=== PATIENT | female | born 1940 | race Caucasian/White ===

== ENCOUNTER 2016-11-04 13:38 | Inpatient (IN) ==
[2016-11-04] MEDS ORDERED: DILTIAZEM 50 MG/10 ML VIAL IV STA ×2 (13:50→14:57)
[2016-11-04] MEDS ORDERED: DILTIAZEM 50 MG/10 ML VIAL IV ONE (13:52)
--- NOTE | 2016-11-04 13:52 | EKG Report ---
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
[2016-11-04 14:05] LABS: Basophils % 0.4 % (0.0-0.8); Eosinophils % 0.3 % (0.00-10.9); Hematocrit 50.6 VOL% (35.7-47.0); Hemoglobin 16.6 GM/DL (12.0-16.0); Immature Granulocytes % 0.4 %; Immature Granulocytes Absolute 0.05 #; Lymphocytes # 1.9 10*3/uL (1.4-4.0); Lymphocytes % 16.7 % (21.3-54.2); Mean Corpuscular HGB Conc 32.8 GM/DL (32-36); Mean Corpuscular Hemoglobin 31 PG (27-34); Mean Platelet Volume 14.4 FL (9.6-12.0); Monocytes % 9.1 % (1.7-12.7); Neutrophils # 8.2 10*3/uL (1.4-7.4); Neutrophils % 73.1 % (38.7-73.9); Platelet Count 109 10*3/uL (130-400); Red Blood Count 5.44 10*6/uL (3.8-5.5); Red Cell Distribution Width 13.6 % (9.3-17.3); White Blood Count 11.2 10*3/uL (4.5-13.71)
[2016-11-04 14:14] LABS: INR 2.5
[2016-11-04 14:15] LABS: PT Patient Result 28.3 SECS
[2016-11-04 14:33] LABS: Blood Urea Nitrogen 26 MG/DL (7-18); Calcium 8.6 MG/DL (8.5-10.1); Glucose 153 MG/DL (74-106); Magnesium 2.1 MG/DL (1.8-2.4); Osmolality,Calculated 286.4 MOS/KG (273-304); Potassium 4.5 MMOL/L (3.5-5.1); Sodium 140 MMOL/L (136-145); Troponin I Only < 0.015 NG/ML (0.00-0.045)
--- NOTE | 2016-11-04 15:27 | XRay Report ---
XR chest 1V portable Indication: Shortness of breath and fever. Chest one view: Comparison 08/06/16. Pacemaker, prosthetic mitral valve, postoperative changes median sternotomy, normal heart size and mediastinal contour and chronic coarsening additional both lung may is stable. No new infiltrates are identified. Impression: Chronic changes as described. No acute cardio pulmonary disease evident. PROCEDURE INTERPRETED AT [facility] DEPARTMENT OF RADIOLOGY Final Report Signed by: Taras Ledezma M.D.
[2016-11-04] MEDS ORDERED: ONDANSETRON 4 MG/2 ML VIAL IV STA (15:29)
[2016-11-04] MEDS ORDERED: ONDANSETRON 4 MG/2 ML VIAL ONE (15:31)
[2016-11-04] MEDS ORDERED: MAGNESIUM SULF RIDER 2 GM in PREMIX 1 EACH IV PRN (15:59)
[2016-11-04] MEDS ORDERED: MAGNESIUM SULF RIDER 4 GM in PREMIX 1 EACH IV PRN (15:59)
--- NOTE | 2016-11-04 16:03 | Emergency Department Note ---
Virgilio Reed Brooke, am scribing for, and in the presence of, Murali Sandoval M.D. 14:07. Lori Reed Howard T, M.D., personally performed the services described in this documentation, ascribed by Sylvia Poole in my presence, and it is both accurate and complete [id number] . Arrival - Arrival Chief Complaint: Arrhythmia/Palpitations Stated Complaint: A.FIB with RVR; dsypnea ED Nursing Triage Note: Patient reports shortness of breath, abdominal pain, nausea, and vomiting since Tuesday. She did experience a near syncopal episode today. EMS arrival she was 160s AFIB with RVR Mode of Arrival: Stretcher Limitations: No Limitations Source: Patient, Family, RN Notes Reviewed Time Seen by Provider: 11/04/16 13:50 - History of Present Illness HPI Narrative: Patient is a 76 year old female brought into the Ed by EMS with c/o afib. Patient says this started today but her "defibrillator did not go off." Patient says at 1100 this morning she checked her heart rate and it was 97. She says she had a syncopal episode after the afib started. She also complains of having some "severe" abdominal pain that she usually gets when she goes into afib. Patient says she has had flu symptoms for the past couple of days, including cough, congestion, and fever. Patient says her cough is productive. Her temperature during triage was 97.6. Patient says she tried to get in to see her doctor but didn't. A Pharmacist recommenced Mucinex for her to take. Patient says she has not had an appetite due to some nausea. Patient has PMHx of CHF, afib, HTN, pacemaker, ablason(x2), thyroid disorder, asthma, obstructive sleep apnea, PE, and GERD. Allergies/Adverse Reactions: Allergies Allergy/AdvReac Type Severity Reaction Status Date / Time morphine Allergy Redness of Verified 08/05/16 14:25 Skin pantoprazole [From Protonix] AdvReac Intermediate Abdominal Verified 08/06/16 10 :06 Pain Home Medications: Home Medications Medication Instructions Recorded Confirmed Type Ondansetron Tab [Zofran Tab] 4 mg PO Q6H PRN 03/11/15 08/05/16 History Beclomethasone 80 Mcg Inhaler 80 mcg INH BID PRN #1 inhaler 04/28/16 08/05/16 Rx [Qvar 80 Mcg] Sotalol [Betapace] 120 mg PO BID #60 tablet 04/28/16 08/05/16 Rx Levothyroxine Tab [Synthroid Tab] 100 mcg PO DAILY 06/05/16 08/05/16 History B1/B2/B3/B5/B6/Iron/Meth/Choln 15 ml PO DAILY 08/05/16 08/05/16 History [Geritol Tonic] Cholecalciferol (Vitamin D3) 5,000 unit PO DAILY 08/05/16 08/05/16 History [Vitamin D3] Diltiazem Cd Cap [Cardizem CD] 120 mg PO BID 08/05/16 08/05/16 History Magnesium Oxide [Magnesium] 500 mg PO BID 08/05/16 08/05/16 History Vitamin B Complex 1 each PO DAILY 08/05/16 08/05/16 History Warfarin [Coumadin] 5 mg PO DAILY 08/05/16 08/05/16 History Review of System - Review of System 12 point system: reviewed and no additional remarkable complaints except as stated - Review of System Constitutional: Present: fever Respiratory: Present: cough (productive) Cardiovascular: Present: syncope, other (afib) Gastrointestinal: Present: abdominal pain, nausea Skin: Absent: rash Medical,Surgical,& Family Hx - Medical History Cardio: History of: Cardiac Dysrhythmia (A-Fib), CHF, Hypertension, Pacemaker, Cardiovascular Problems (Ablation x 2 Dr Courtney De La Cruz) Psychological: No history of: Anxiety Disorders HEENT: History of: Eye Problem (wears glasses) Endocrine: History of: Thyroid Disorder (takes synthroid) Respiratory: History of: Asthma, Obstructive Sleep Apnea, Pulmonary Embolism Renal: History of: Renal Problems (urinary urgency) Gastrointestinal: History of: GERD, GI Problems Musculoskeletal: History of: Musculoskeletal Problems (joint stiffness) - Surgical History Cardiac Surgeries: Sugical HX of: Cardiac Catheterization, Cardiac Surgery ( mitral valve replacement, ablation x 2), Internal Defibrillator Thoracic Surgeries: Patient denies;: Organ Transplant Neurologic Surgeries: Patient denies: Neurologic Surgery HEENT Surgeries: Patient denies: Eye Surgery, Tonsilectomy & Adenoidectomy Abdominal Surgeries: Surgical HX of: Colonoscopy, EGD Patient denies: Abdominal Surgery Reproductive Surgeries: Surgical HX of;: Section, Hysterectomy Patient denies;: Genitourinary Surgery - Family History Family History: Reports;: Family Heart Disease (father and mother), Family Hypertension (mother) Comment Only: Family Cancer (sister had colon cancer) - Social History Smoking Status: Never smoker Frequency of Alcohol Use: None Type of Drug Use: None Exam Vital Signs: Vital Signs Temperature 97.6 F 11/04/16 13:40 Pulse Rate 66 11/04/16 15:15 Respiratory Rate 18 11/04/16 15:15 Blood Pressure 109/34 11/04/16 15:15 O2 Sat by Pulse Oximetry 97 11/04/16 15:15 - General General appearance: alert, in no apparent distress - Head Head exam: Present: atraumatic, normocephalic - Eye Eye exam: Present: normal appearance, PERRL, EOMI - ENT ENT exam: Present: normal exam - Neck Neck exam: Present: normal inspection - Chest Chest inspection: Present: normal inspection, symmetric chest wall rise - Respiratory Respiratory exam: Present: wheezes (diffuse), other (coarse breath sounds) - Cardiovascular Cardiovascular exam: Present: regular rate, irregular rhythm, normal heart sounds - Abdominal Exam Abdominal exam: Present: soft. Absent: distention, tenderness - Extremities Exam Extremities exam: Present: normal inspection - Back Exam Back exam: Present: normal inspection - Neurological Exam Neurological exam: Present: alert, oriented X3 - Psychiatric Psychiatric exam: Present: normal affect, normal mood - Skin Skin exam: Present: warm, dry, intact, normal color Course Course Narrative: Medical decision making: Nonspecific respiratory symptoms with some dehydration may be causing her irregular tachyarrhythmia, complicated cardiac history therefore will discuss with Dr. Flores cloth mercerizer back tender on-call for further evaluation. Likely cardiology will admit patient. Results - Labs CBC & BMP: 11/04/16 13:49 11/04/16 13:49 Lab Results: I have reviewed the patients labs Labs: Laboratory Tests 11/04/16 11/04/16 13:49 13:49 Hgb 16.6 H Hct 50.6 H Plt Count 109 L MPV 14.4 H Lymph % (Auto) 16.7 L Neut # (Auto) 8.2 H [place] # (Auto) 1.0 H Anion Gap 16.5 H BUN 26 H Creatinine 1.20 H BUN/Creatinine Ratio 21.00 H Glucose 153 H - Diagnostic Findings Procedure: Chest x-ray: report reviewed by me (Chronic changes as described. No acute cardiopulmonary disease evident.) Disposition Clinical Impression: Atrial fibrillation, Upper respiratory infection, Dehydration Case discussed with: patient Disposition: Disch/Xfer-[facility] Condition: Guarded Time of Disposition: 16:03
[2016-11-04] MEDS ORDERED: METOPROLOL TARTRATE 5 MG/5 ML VIAL IV STA (16:30)
[2016-11-04] MEDS ORDERED: METOPROLOL TARTRATE 5 MG/5 ML VIAL IV ONE (16:32)
[2016-11-04] MEDS: SODIUM CHLORIDE 0.45% 1,000 ML IV SCH (16:38)
--- NOTE | 2016-11-04 18:50 | Cardiology History & Physical ---
Assessment and Plan - Time spent with patient Time spent with patient: (CBCs were unremarkable. Chemistries with electrolytes unremarkable. Cranial 1.2 BUN 26. Troponin is nondetectable.) (1) Flu syndrome Status: Acute Assessment and plan: Patient with GI complaints as well as respiratory complaints of possible viral/ flu syndrome. We will treat this symptomatology. Current Visit: Yes (2) Atrial flutter with rapid ventricular response Status: Acute Assessment and plan: We'll control patient's rates and try to convert the patient appropriately. Current Visit: Yes (3) Obesity Status: Acute Assessment and plan: Chronic issue. Current Visit: No (4) Hypercholesterolemia Status: Acute Assessment and plan: Chronic issue. Current Visit: No History of Present Illness Chief complaint: atrial fibrillation History of present illness: Ms. Lim is a 76 year old female who presented to the emergency room complaining of fever and congestion as well as cough and wheezing. She's had some nausea and diarrhea. It emerged ratios then to be in atrial flutter with rapid ventricular response. She is not aware that she was in atrial fibrillation/flutter. She is asymptomatic with regard only complaints is that with her viral/flu syndrome. The patient has a past cardiac history in that she has had mitral valve replacement for which she has had a maze procedure at the time of her mitral valve replacement with 2 ablations for atrial dysrhythmias. She has had a wide complex tachycardia felt to be ventricular tachycardia for which she has an AICD implanted. She denies any anginal equivalent. As noted she had no significant coronary disease previously on evaluation. She is being admitted by the emergency room to our service because of her atrial tachycardia Home Medications Medication Instructions Recorded Confirmed Type Ondansetron Tab [Zofran Tab] 4 mg PO Q6H PRN 03/11/15 11/04/16 History Beclomethasone 80 Mcg Inhaler 80 mcg INH BID PRN #1 inhaler 04/28/16 11/04/16 Rx [Qvar 80 Mcg] Sotalol [Betapace] 120 mg PO BID #60 tablet 04/28/16 11/04/16 Rx Levothyroxine Tab [Synthroid Tab] 100 mcg PO DAILY 06/05/16 11/04/16 History Cholecalciferol (Vitamin D3) 5,000 unit PO DAILY 08/05/16 11/04/16 History [Vitamin D3] Magnesium Oxide [Magnesium] 500 mg PO BID 08/05/16 11/04/16 History Vitamin B Complex 1 each PO DAILY 08/05/16 11/04/16 History Warfarin [Coumadin] 5 mg PO DAILY 08/05/16 11/04/16 History ALPRAZolam [Alprazolam] 0.25 mg PO TID PRN 11/04/16 11/04/16 History Acetaminophen Tab [Tylenol Tab] 1,000 mg PO Q8HR PRN 11/04/16 11/04/16 History Diltiazem HCl [Cartia XT] 180 mg PO BID 11/04/16 11/04/16 History Levalbuterol Tartrate [Xopenex Hfa 2 puff INH BID 11/04/16 11/04/16 History Inhaler] Losartan Potassium [Losartan 100 mg PO DAILY 11/04/16 11/04/16 History Potassium] Allergies Allergy/AdvReac Type Severity Reaction Status Date / Time morphine Allergy Redness of Verified 08/05/16 14:25 Skin pantoprazole [From Protonix] AdvReac Intermediate Abdominal Verified 08/06/16 10 :06 Pain Review of systems: Constitutional: Deniesfrequent falls, night sweats, weight gain, weight loss. She has chronic obesity. She has recently had fever and chills and decreased appetite with what she describes as the flu. Eyes: Denies visual changes or loss of vision Ears: Denies decreased hearing, vertigo Nose, mouth and throat: Denies dysphagia, epistaxis, headaches, neck pain, tongue swelling, Neck: Denies thyromegaly or masses. No stiffness. Cardiovascular: as per HPI Respiratory: Complains of shortness of breath and wheezing recently with her present complaints. Denies hemoptysis, dyspnea on exertion, w snoring Gastrointestinal: Denies abdominal pain, constipation, dyspepsia, dysphagia, hematemesis, hematochezia, melena, nausea, vomiting Genitourinary: Denies dysuria, hematuria, nocturia Musculoskeletal: Denies arthralgias, joint swelling, muscle weakness, myalgias Neurological: denies abnormal gait, abnormal speech, confusion, convulsions, frequent falls, headaches, memory loss, syncope Psychiatric: Denies anxiety, confusion, depression Endocrine: Denies cold intolerance, fatigue, heat intolerance Hematologic/Lymphatic: Denies easy bleeding, easy bruising Dermatologic: Denies Rash, itching, shingles Medical,Surgical,& Family Hx - Medical History Cardio: History of: Cardiac Dysrhythmia (A-Fib, atrial flutter, ventricular tachycardia), CHF, Hypertension, Pacemaker, Cardiovascular Problems (Ablation x 2 Dr Courtney De La Cruz) Psychological: No history of: Anxiety Disorders HEENT: History of: Eye Problem (wears glasses) Endocrine: History of: Thyroid Disorder (takes synthroid) Respiratory: History of: Asthma, Obstructive Sleep Apnea, Pulmonary Embolism, Pneumonia Renal: History of: Renal Problems (urinary urgency) Gastrointestinal: History of: GERD, GI Problems Musculoskeletal: History of: Musculoskeletal Problems (joint stiffness) - Surgical History Cardiac Surgeries: Sugical HX of: Cardiac Catheterization, Cardiac Surgery ( mitral valve replacement, ablation x 2), Internal Defibrillator Thoracic Surgeries: Patient denies;: Organ Transplant Neurologic Surgeries: Patient denies: Neurologic Surgery HEENT Surgeries: Patient denies: Eye Surgery, Tonsilectomy & Adenoidectomy Abdominal Surgeries: Surgical HX of: Colonoscopy, EGD Patient denies: Abdominal Surgery Reproductive Surgeries: Surgical HX of;: Section, Hysterectomy Patient denies;: Genitourinary Surgery - Family History Family History: Reports;: Family Heart Disease (father and mother), Family Hypertension (mother) Comment Only: Family Cancer (sister had colon cancer) - Social History Smoking Status: Never smoker Frequency of Alcohol Use: None Type of Drug Use: None Functional capacity: independent ambulation Cardiology Physical Exam - Constitutional Vitals: Vital Signs Temp Pulse Resp BP Pulse Ox 97.6 F 88 20 127/77 95 11/04/16 13:40 11/04/16 18:00 11/04/16 18:00 11/04/16 18:00 11/04/16 18:00 Exam: General appearance: Obese, no acute distress. She was asleep when I arrived. Head exam: normal inspection, atraumatic Eye exam: Pupils are equal and reactive. EOMI. There is no trauma. Ear exam: Anatomically normal. Normal auditory acuity to conversation. Oral exam: No significant oral lesions. Neck exam: normal inspection no JVD. No carotid bruit. Trachea is in midline. Respiratory exam: Patient has diffuse wheezing and coarse breath sounds throughout the anterior and posterior lung may. Cardiovascular exam: Irregular rhythm and rate. Heart sounds are distant but no gross murmur or gallop or rub. No precordial lift. Chest wall/torso: Anatomically normal. No tenderness, deformity. Old well- healed midline sternotomy scar. Peripheral Pulses: 2+ throughout. GI/Abdominal exam: normal bowel sounds, soft and nontender, no abdominal bruits or pulsatile masses. Musculoskeletal/Extremities exam: normal inspection without edema or cyanosis. No deformities or trauma. Neurological exam: alert, oriented X3. There is no gross neurologic deficits. Psychiatric exam: normal affect, normal mood. Cognitive function is grossly intact. Skin exam: normal color, warm. No rashes or other skin lesions. Result/EKG - Labs CBC & BMP: 11/04/16 13:49 11/04/16 13:49 Lab Results: I have reviewed the past 24 hour labs (CBCs were unremarkable. Chemistries with electrolytes unremarkable. Cranial 1.2 BUN 26. Troponin is nondetectable) Quality Measures - VTE Contraindication to Pharmacological VTE Prophylaxis: Already on Theraputic Agent , No Prophylaxis Needed
[2016-11-04] MEDS ORDERED: BECLOMETHASONE 80 MCG/PUFF INHALER 8.7 GM INH PRN (19:02)
[2016-11-04] MEDS ORDERED: DILTIAZEM CD 180 MG CAPSULE PO SCH (21:00)
[2016-11-04] MEDS ORDERED: SOTALOL 80 MG TABLET PO SCH (21:00)
[2016-11-04] MEDS: MAG OXIDE PO SCH (21:51)
[2016-11-04] MEDS: ALPRAZolam 0.25 MG TABLET PO PRN (21:52)
[2016-11-04] MEDS: ACETAMINOPHEN 500 MG TABLET PO PRN (21:59)
[2016-11-04] MEDS: ALBUTEROL 2.5 MG/3 ML NEB RESP TX SCH (23:47)
[2016-11-05] MEDS: ONDANSETRON 4 MG TABLET PO PRN ×3 (01:59→16:25)
[2016-11-05] MEDS: SODIUM CHLORIDE 0.45% 1,000 ML IV SCH ×3 (01:59→15:53)
[2016-11-05] MEDS: ALBUTEROL 2.5 MG/3 ML NEB RESP TX SCH ×2 (03:17→07:17)
[2016-11-05 05:14] LABS: Basophils % 0.5 % (0.0-0.8); Eosinophils % 0.5 % (0.00-10.9); Hematocrit 44.3 VOL% (35.7-47.0); Hemoglobin 14.6 GM/DL (12.0-16.0); Immature Granulocytes % 0.4 %; Immature Granulocytes Absolute 0.03 #; Lymphocytes # 1.8 10*3/uL (1.4-4.0); Lymphocytes % 22.4 % (21.3-54.2); Mean Corpuscular Hemoglobin 31 PG (27-34); Mean Corpuscular Volume 94.1 FL (87-102); Mean Platelet Volume 14.2 FL (9.6-12.0); Monocytes # 1.4 10*3/uL (0.11-0.8); Monocytes % 17.5 % (1.7-12.7); Neutrophils # 4.8 10*3/uL (1.4-7.4); Neutrophils % 58.7 % (38.7-73.9); Platelet Count 75 10*3/uL (130-400); Red Blood Count 4.71 10*6/uL (3.8-5.5); Red Cell Distribution Width 13.4 % (9.3-17.3); White Blood Count 8.2 10*3/uL (4.5-13.71)
[2016-11-05 05:38] LABS: Hypochromasia 1+; Lymphocytes 16 % (20-55); Platelet Estimate Decreased; Segmented Neutrophils 70 % (50-85); Total Cells Counted 100
[2016-11-05 05:46] LABS: Potassium 4.3 MMOL/L (3.5-5.1)
--- NOTE | 2016-11-05 07:02 | EKG Report ---
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
[2016-11-05] MEDS: LEVOTHYROXINE 100 MCG TABLET PO SCH (07:08)
--- NOTE | 2016-11-05 08:13 | Cardiology Progress Note ---
Assessment and Plan (1) Atrial flutter with rapid ventricular response Status: Acute Assessment and plan: She remains fast. It appears that she was placed on albuterol rather than his Xopenex had ordered. This certainly exacerbate her fast heart rates. We'll increase her diltiazem and sotalol. With the sotalol we have to be concerned about exacerbating any wheezing. She may need electrocardioversion. She is adequately anticoagulated. Current Visit: Yes (2) Obesity Status: Acute Assessment and plan: Chronic issue. Current Visit: No (3) Hypercholesterolemia Status: Acute Assessment and plan: Chronic issue. We'll recheck lipids tomorrow. Current Visit: No (4) Viral syndrome Status: Acute Assessment and plan: This is exacerbated her tachycardia. We will treat this but go ahead and start her on antibiotic cusp history of having wheezing and respiratory issues previously. She could have underlying bronchitis. Current Visit: Yes Cardiology - PN: Subj Interval history: The patient this morning he generally feels better. She still wheezing coughing and decreased appetite. She's not having much in the way of GI symptomatology. She is less nauseous. Her influenza a, B antigen was negative. She still having some wheezing coughing. She is having trouble getting her sputum up. She is still tachycardic with atrial flutter. On review of the chart it turns out that she we indeed had ordered Xopenex but apparently pharmacy or someone switched her to albuterol and she cannot take because of her tachycardia. I have reordered the Xopenex instructed nursing staff not to allow this to be changed. She still in atrial flutter with rapid ventricular response was tolerating this. We'll go to adjust her medications to manage this. We will ask or stop her albuterol and the Xopenex. We may have to use steroids but I'll and try to avoid that. She is concerned about constipation. Also concerned about bronchitis. Her blood counts and her CBC unremarkable. Her troponins of been nondetectable. Exam (Progress Note) - Constitutional Vitals: Period Temp Pulse Resp BP Sys/[place] Pulse Ox Last 24 Hr 96.6 F-98.6 F 74-140 16-24 103-153/70-101 89-98 Exam: General appearance: Obese, no acute distress. She was asleep when I arrived. Head exam: normal inspection, atraumatic Eye exam: Pupils are equal and reactive. EOMI. There is no trauma. Neck exam: normal inspection no JVD. No carotid bruit. Trachea is in midline. Respiratory exam: Patient has diffuse wheezing and coarse breath sounds throughout the anterior and posterior lung may. This though has improved. Cardiovascular exam: Irregular rhythm and rate. She is tachycardic. Heart sounds are distant but no gross murmur or gallop or rub. No precordial lift. Chest wall/torso: Anatomically normal. No tenderness, deformity. Old well- healed midline sternotomy scar. Peripheral Pulses: 2+ throughout. GI/Abdominal exam: normal bowel sounds, soft and nontender, no abdominal bruits or pulsatile masses. Musculoskeletal/Extremities exam: normal inspection without edema or cyanosis. No deformities or trauma. Neurological exam: alert, oriented X3. There is no gross neurologic deficits. Psychiatric exam: normal affect, normal mood. Cognitive function is grossly intact. Skin exam: normal color, warm. No rashes or other skin lesions. Result/EKG - Labs CBC & BMP: 11/05/16 04:28 11/05/16 04:28 Lab Results: I have reviewed the past 24 hour labs (lower stable with nondetectable troponins.) Labs: Laboratory Results - last 24 hr 11/04/16 11/04/16 11/05/16 19:33 21:47 04:28 WBC 8.2 RBC 4.71 Hgb 14.6 D Hct 44.3 MCV 94.1 MCH 31 MCHC 33.0 RDW 13.4 Plt Count 75 L D MPV 14.2 H Neut % (Auto) 58.7 Lymph % (Auto) 22.4 Bertie % (Auto) 17.5 H Eos % (Auto) 0.5 Baso % (Auto) 0.5 Neut # (Auto) 4.8 Lymph # (Auto) 1.8 Bertie # (Auto) 1.4 H Eos # (Auto) 0.0 Baso # (Auto) 0.0 Total Counted 100 Immature Gran % 0.4 Nucleated RBC % 0.0 Immature Gran # 0.03 Segmented Neutrophils 70 Lymphocytes 16 L Monocytes 14 Nucleated RBCs # 0.00 Platelet Estimate Decreased Hypochromasia 1+ Morphology Comment Sodium Potassium Chloride Carbon Dioxide Anion Gap BUN Creatinine GFR Calculation BUN/Creatinine Ratio Glucose Calculated Osmolality Calcium Troponin I < 0.015 < 0.015 11/05/16 04:28 WBC RBC Hgb Hct MCV MCH MCHC RDW Plt Count MPV Neut % (Auto) Lymph % (Auto) Bertie % (Auto) Eos % (Auto) Baso % (Auto) Neut # (Auto) Lymph # (Auto) Bertie # (Auto) Eos # (Auto) Baso # (Auto) Total Counted Immature Gran % Nucleated RBC % Immature Gran # Segmented Neutrophils Lymphocytes Monocytes Nucleated RBCs # Platelet Estimate Hypochromasia Morphology Comment Sodium 143 Potassium 4.3 Chloride 106 Carbon Dioxide 27 Anion Gap 14.3 BUN 17 Creatinine 0.70 GFR Calculation 101 BUN/Creatinine Ratio 24.00 H Glucose 81 Calculated Osmolality 285.0 Calcium 8.0 L Troponin I - Impressions Impressions: Telemetry with atrial flutter rapid ventricular response. ECG with atrial flutter with rapid ventricular response. No acute changes. Quality Measures - VTE Contraindication to Pharmacological VTE Prophylaxis: Already on Theraputic Agent , No Prophylaxis Needed Specialty Discharge - Follow Up or Referrals - Discharge Medications No Action Ondansetron Tab [Zofran Tab] 4 mg PO Q6H PRN PRN Reason: Nausea Beclomethasone 80 Mcg Inhaler [Qvar 80 Mcg] 80 mcg INH BID PRN #1 inhaler PRN Reason: SOB, wheezing Sotalol [Betapace] 120 mg PO BID #60 tablet Levothyroxine Tab [Synthroid Tab] 100 mcg PO DAILY Vitamin B Complex 1 each PO DAILY Cholecalciferol (Vitamin D3) [Vitamin D3] 5,000 unit PO DAILY Magnesium Oxide [Magnesium] 500 mg PO BID Warfarin [Coumadin] 5 mg PO DAILY Levalbuterol Tartrate [Xopenex Hfa Inhaler] 2 puff INH BID Acetaminophen Tab [Tylenol Tab] 1,000 mg PO Q8HR PRN PRN Reason: Pain ALPRAZolam [Alprazolam] 0.25 mg PO TID PRN PRN Reason: Anxiety Losartan Potassium [Losartan Potassium] 100 mg PO DAILY Diltiazem HCl [Cartia XT] 180 mg PO BID
[2016-11-05] MEDS ORDERED: LEVOFLOXACIN INJ 500 MG in PREMIX 1 EACH IV SCH (08:30)
[2016-11-05] MEDS: DOCUSATE SODIUM 100 MG CAPSULE PO SCH ×2 (08:52→21:37)
[2016-11-05] MEDS: DILTIAZEM CD 240 MG CAPSULE PO SCH ×2 (08:52→21:38)
[2016-11-05] MEDS: LOSARTAN 50 MG TABLET PO SCH (08:53)
[2016-11-05] MEDS: CHOLECALCIFEROL 1,000 UNIT TABLET PO SCH (08:54)
[2016-11-05] MEDS: cefTRIAXone 1,000 MG in SODIUM CHLORIDE 0.9% 100 ML IV SCH (08:55)
[2016-11-05] MEDS ORDERED: WARFARIN 5 MG TABLET PO SCH (09:00)
[2016-11-05] MEDS: SOTALOL 80 MG TABLET PO SCH ×2 (09:00→21:37)
[2016-11-05] MEDS: MULTIVITAMIN (BEROCCA) TABLET PO SCH (09:01)
[2016-11-05] MEDS: MAG OXIDE PO SCH (09:06)
[2016-11-05] MEDS: ACETAMINOPHEN 500 MG TABLET PO PRN ×2 (09:14→19:37)
[2016-11-05] MEDS ORDERED: LEVALBUTEROL 1.25 MG/3 ML NEB RESP TX SCH (11:00)
[2016-11-05] MEDS: LEVALBUTEROL 1.25 MG/3 ML NEB RESP TX SCH ×3 (14:11→23:17)
[2016-11-05] MEDS: ALPRAZolam 0.25 MG TABLET PO PRN (16:25)
[2016-11-05] MEDS: WARFARIN 5 MG TABLET PO SCH (17:03)
[2016-11-05] MEDS: ZALEPLON 5 MG CAPSULE PO PRN (21:38)
[2016-11-06] MEDS: SODIUM CHLORIDE 0.45% 1,000 ML IV SCH (01:33)
[2016-11-06] MEDS: LEVALBUTEROL 1.25 MG/3 ML NEB RESP TX SCH ×5 (03:16→20:50)
[2016-11-06] MEDS: LEVOTHYROXINE 100 MCG TABLET PO SCH (06:41)
[2016-11-06 06:50] LABS: INR 3.9
[2016-11-06 06:58] LABS: Risk Ratio 4.86; VLDL CHOLESTEROL 28.4 MG/DL
--- NOTE | 2016-11-06 08:05 | Cardiology Progress Note ---
Assessment and Plan (1) Atrial flutter with rapid ventricular response Status: Acute Assessment and plan: She is an 80 paced rhythm this morning. She converted earlier this morning. We 'll continue to monitor this and continue present medications. Current Visit: Yes (2) Obesity Status: Chronic Assessment and plan: Chronic issue. Current Visit: No (3) Hypercholesterolemia Status: Chronic Assessment and plan: This is by history. Her lipids are fairly stable. I'm going to hold starting her on statins right now. This can be started by her primary physician or Dr. Gonzales if needed. Current Visit: No (4) Viral syndrome Status: Acute Assessment and plan: This is the cause of her respiratory issues and she is improving markedly with present therapy. We are using antibiotic because her past history of pulmonary issues and the possible lung bacterial infection. We will continue present therapy for at least another 24-40 hours. Current Visit: Yes (5) S/P MVR (mitral valve replacement) Status: Chronic Assessment and plan: This is a pericardial valve. Current Visit: No (6) Ventricular tachycardia Status: Chronic Assessment and plan: This is been stable. She said no therapy from her AICD. Current Visit: No (7) Chronic anticoagulation Status: Chronic Assessment and plan: The patient's INR is elevated today probably secondary to some other medications that she is on with warfarin. Current Visit: No Cardiology - PN: Subj Interval history: Patient doing much better today. She states she is breathing much better without any cough congestion much. She is to have some wheezing. She is breathing with much more is no chest shortness of breath today. Her rhythm was converted to sinus/atrial paced. Her INR is elevated today may be related some her medications that were using for her pulmonary issues. We will at this time hold her worse and recheck this. Exam (Progress Note) - Constitutional Vitals: Period Temp Pulse Resp BP Sys/Eugene Pulse Ox Last 24 Hr 96.2 F-99.4 F 56-138 16-22 111-142/60-88 93-100 Exam: General appearance: Obese, no acute distress. She was sitting on side the bed and eating breakfast on my arrival Head exam: normal inspection, atraumatic Eye exam: Pupils are equal and reactive. EOMI. There is no trauma. Neck exam: normal inspection no JVD. No carotid bruit. Trachea is in midline. Respiratory exam: Patient has diffuse coarse breath sounds bilaterally with slight wheezing but much improved since chest may. She is moving air much better. Cardiovascular exam: Regular rate and rhythm. She is tachycardic. Heart sounds are distant but no gross murmur or gallop or rub. No precordial lift. Chest wall/torso: Anatomically normal. No tenderness, deformity. Old well- healed midline sternotomy scar. Peripheral Pulses: 2+ throughout. GI/Abdominal exam: normal bowel sounds, soft and nontender, no abdominal bruits or pulsatile masses. Musculoskeletal/Extremities exam: normal inspection without edema or cyanosis. No deformities or trauma. Neurological exam: alert, oriented X3. There is no gross neurologic deficits. Psychiatric exam: normal affect, normal mood. Cognitive function is grossly intact. Skin exam: normal color, warm. No rashes or other skin lesions. Result/EKG - Labs CBC & BMP: 11/05/16 04:28 11/05/16 04:28 Labs: Laboratory Results - last 24 hr 11/06/16 11/06/16 04:28 04:28 INR 3.9 PT Patient/Control Mix 45.0 D Triglycerides 142 Cholesterol 141 LDL Cholesterol 92.0 VLDL Cholesterol 28.4 HDL Cholesterol 29 L Heart Disease Risk Ratio 4.86 - Impressions Impressions: Telemetry this morning with AV sequential pacing. Quality Measures - VTE Contraindication to Pharmacological VTE Prophylaxis: Already on Theraputic Agent , No Prophylaxis Needed Specialty Discharge - Follow Up or Referrals - Discharge Medications No Action Ondansetron Tab [Zofran Tab] 4 mg PO Q6H PRN PRN Reason: Nausea Beclomethasone 80 Mcg Inhaler [Qvar 80 Mcg] 80 mcg INH BID PRN #1 inhaler PRN Reason: SOB, wheezing Sotalol [Betapace] 120 mg PO BID #60 tablet Levothyroxine Tab [Synthroid Tab] 100 mcg PO DAILY Vitamin B Complex 1 each PO DAILY Cholecalciferol (Vitamin D3) [Vitamin D3] 5,000 unit PO DAILY Magnesium Oxide [Magnesium] 500 mg PO BID Warfarin [Coumadin] 5 mg PO DAILY Levalbuterol Tartrate [Xopenex Hfa Inhaler] 2 puff INH BID Acetaminophen Tab [Tylenol Tab] 1,000 mg PO Q8HR PRN PRN Reason: Pain ALPRAZolam [Alprazolam] 0.25 mg PO TID PRN PRN Reason: Anxiety Losartan Potassium [Losartan Potassium] 100 mg PO DAILY Diltiazem HCl [Cartia XT] 180 mg PO BID
[2016-11-06] MEDS: cefTRIAXone 1,000 MG in SODIUM CHLORIDE 0.9% 100 ML IV SCH (08:43)
[2016-11-06] MEDS: SOTALOL 80 MG TABLET PO SCH ×2 (08:44→20:09)
[2016-11-06] MEDS: CHOLECALCIFEROL 1,000 UNIT TABLET PO SCH (08:45)
[2016-11-06] MEDS: LOSARTAN 50 MG TABLET PO SCH (08:45)
[2016-11-06] MEDS: DILTIAZEM CD 240 MG CAPSULE PO SCH ×2 (08:45→20:10)
[2016-11-06] MEDS: DOCUSATE SODIUM 100 MG CAPSULE PO SCH ×3 (08:45→20:13)
[2016-11-06] MEDS: MULTIVITAMIN (BEROCCA) TABLET PO SCH (08:46)
[2016-11-06] MEDS: ONDANSETRON 4 MG TABLET PO PRN (10:00)
[2016-11-06] MEDS: ZALEPLON 5 MG CAPSULE PO PRN (20:09)
[2016-11-06] MEDS: ACETAMINOPHEN 500 MG TABLET PO PRN (20:10)
[2016-11-06] MEDS: ALPRAZolam 0.25 MG TABLET PO PRN (20:12)
[2016-11-07] MEDS: LEVALBUTEROL 1.25 MG/3 ML NEB RESP TX SCH ×7 (00:25→23:46)
[2016-11-07 05:11] LABS: INR 2.6
[2016-11-07] MEDS: LEVOTHYROXINE 100 MCG TABLET PO SCH (06:12)
[2016-11-07] MEDS: cefTRIAXone 1,000 MG in SODIUM CHLORIDE 0.9% 100 ML IV SCH (08:48)
[2016-11-07] MEDS: LOSARTAN 50 MG TABLET PO SCH (08:48)
[2016-11-07] MEDS: MULTIVITAMIN (BEROCCA) TABLET PO SCH (08:49)
[2016-11-07] MEDS: DOCUSATE SODIUM 100 MG CAPSULE PO SCH ×2 (08:49→20:21)
[2016-11-07] MEDS: DILTIAZEM CD 240 MG CAPSULE PO SCH ×2 (08:49→20:21)
[2016-11-07] MEDS: CHOLECALCIFEROL 1,000 UNIT TABLET PO SCH (08:49)
[2016-11-07] MEDS: SOTALOL 80 MG TABLET PO SCH ×2 (08:57→20:19)
--- NOTE | 2016-11-07 12:12 | Cardiology Progress Note ---
Assessment and Plan (1) Atrial flutter with rapid ventricular response Status: Acute Assessment and plan: She remains in electronic atrial pacing/sinus rhythm. Will continue present medical regimen and monitor the patient. Current Visit: Yes (2) Obesity Status: Chronic Assessment and plan: Chronic issue. Current Visit: No (3) Hypercholesterolemia Status: Chronic Assessment and plan: This is by history. Her lipids are fairly stable. I'm going to hold starting her on statins right now. This can be started by her primary physician or Dr. Dick who follows her if needed. Current Visit: No (4) Viral syndrome Status: Acute Assessment and plan: This is the cause of her respiratory issues and she is improving markedly with present therapy. We are using antibiotic because her past history of pulmonary issues and the possible lung bacterial infection. She is still having some wheezing on going to give her at least 3 doses of steroids today. Current Visit: Yes (5) S/P MVR (mitral valve replacement) Status: Chronic Assessment and plan: This is a pericardial valve. This is stable. Current Visit: No (6) Ventricular tachycardia Status: Chronic Assessment and plan: This is been stable. She said no therapy from her AICD. Current Visit: No (7) Chronic anticoagulation Status: Chronic Assessment and plan: INR 2.6 today were then restarted her warfarin. We'll continue to monitor INRs. Current Visit: No Cardiology - PN: Subj Interval history: Patient continued to slowly progress. She is not short of breath. She has no complaints of cardiac issues. Since converting to sinus rhythm early yesterday morning she is remained in sinus rhythm or electronic atrial pacing. She's had no further dysrhythmias documented. We discussed using steroids at least for short time. A medical head or 3 doses. I think cardiac-elizalde she is stable especially for rhythm as well as hemodynamics and vital signs. Her respiratory status is improved and slowly improving. Her INR is down to 2.6. We will resume her warfarin and monitor her INRs. Exam (Progress Note) - Constitutional Vitals: Period Temp Pulse Resp BP Sys/Eugene Pulse Ox Last 24 Hr 97.4 F-98.6 F 59-68 2-20 114-148/49-70 93-99 Exam: General appearance: Obese, no acute distress. She was sitting on side the bed and eating lunch on my arrival Head exam: normal inspection, atraumatic Eye exam: Pupils are equal and reactive. EOMI. There is no trauma. Neck exam: normal inspection no JVD. No carotid bruit. Trachea is in midline. Respiratory exam: Patient has diffuse coarse breath sounds bilaterally with slight expiratory wheezing with increased respiratory phase. Cardiovascular exam: Regular rate and rhythm. She is tachycardic. Heart sounds are distant but no gross murmur or gallop or rub. No precordial lift. Chest wall/torso: Anatomically normal. No tenderness, deformity. Old well- healed midline sternotomy scar. Peripheral Pulses: 2+ throughout. GI/Abdominal exam: normal bowel sounds, soft and nontender, no abdominal bruits or pulsatile masses. Musculoskeletal/Extremities exam: normal inspection without edema or cyanosis. No deformities or trauma. Neurological exam: alert, oriented X3. There is no gross neurologic deficits. Psychiatric exam: normal affect, normal mood. Cognitive function is grossly intact. Skin exam: normal color, warm. No rashes or other skin lesions. Result/EKG - Labs CBC & BMP: 11/05/16 04:28 11/05/16 04:28 Lab Results: I have reviewed the past 24 hour labs (INR is 2.6 today and down from 3.9 yesterday.) Labs: Laboratory Results - last 24 hr 11/07/16 03:44 INR 2.6 PT Patient/Control Mix 29.0 D - Impressions Impressions: Telemetry with sinus rhythm/electronic atrial pacing. No further atrial dysrhythmias. Quality Measures - VTE Contraindication to Pharmacological VTE Prophylaxis: Already on Theraputic Agent , No Prophylaxis Needed Specialty Discharge - Follow Up or Referrals - Discharge Medications No Action Ondansetron Tab [Zofran Tab] 4 mg PO Q6H PRN PRN Reason: Nausea Beclomethasone 80 Mcg Inhaler [Qvar 80 Mcg] 80 mcg INH BID PRN #1 inhaler PRN Reason: SOB, wheezing Sotalol [Betapace] 120 mg PO BID #60 tablet Levothyroxine Tab [Synthroid Tab] 100 mcg PO DAILY Vitamin B Complex 1 each PO DAILY Cholecalciferol (Vitamin D3) [Vitamin D3] 5,000 unit PO DAILY Magnesium Oxide [Magnesium] 500 mg PO BID Warfarin [Coumadin] 5 mg PO DAILY Levalbuterol Tartrate [Xopenex Hfa Inhaler] 2 puff INH BID Acetaminophen Tab [Tylenol Tab] 1,000 mg PO Q8HR PRN PRN Reason: Pain ALPRAZolam [Alprazolam] 0.25 mg PO TID PRN PRN Reason: Anxiety Losartan Potassium [Losartan Potassium] 100 mg PO DAILY Diltiazem HCl [Cartia XT] 180 mg PO BID
[2016-11-07] MEDS: methylPREDNISolone SOD SUC 125 MG/2 ML VIAL IV SCH ×2 (12:56→20:23)
[2016-11-07] MEDS: ONDANSETRON 4 MG TABLET PO PRN (15:22)
[2016-11-07] MEDS: WARFARIN 5 MG TABLET PO SCH (17:21)
[2016-11-07] MEDS: ALPRAZolam 0.25 MG TABLET PO PRN (20:21)
[2016-11-08] MEDS: LEVALBUTEROL 1.25 MG/3 ML NEB RESP TX SCH ×4 (02:34→15:51)
[2016-11-08] MEDS: ONDANSETRON 4 MG TABLET PO PRN ×2 (03:02→13:09)
[2016-11-08 06:06] LABS: INR 2.1; PT Patient Result 22.9 SECS
[2016-11-08] MEDS: LEVOTHYROXINE 100 MCG TABLET PO SCH (06:06)
[2016-11-08] MEDS: MULTIVITAMIN (BEROCCA) TABLET PO SCH (10:07)
[2016-11-08] MEDS: DILTIAZEM CD 240 MG CAPSULE PO SCH (10:08)
[2016-11-08] MEDS: CHOLECALCIFEROL 1,000 UNIT TABLET PO SCH (10:09)
[2016-11-08] MEDS: SOTALOL 80 MG TABLET PO SCH ×2 (10:09→20:33)
[2016-11-08] MEDS: LOSARTAN 50 MG TABLET PO SCH (10:10)
[2016-11-08] MEDS: DOCUSATE SODIUM 100 MG CAPSULE PO SCH ×2 (10:11→20:34)
[2016-11-08] MEDS: ALPRAZolam 0.25 MG TABLET PO PRN ×2 (10:11→20:34)
[2016-11-08] MEDS: cefTRIAXone 1,000 MG in SODIUM CHLORIDE 0.9% 100 ML IV SCH (10:26)
[2016-11-08] MEDS: methylPREDNISolone SOD SUC 125 MG/2 ML VIAL IV SCH (10:29)
[2016-11-08] MEDS ORDERED: methylPREDNISolone SOD SUC 125 MG/2 ML VIAL IV ONE (12:50)
--- NOTE | 2016-11-08 13:00 | Cardiology Progress Note ---
Kojo Reed Vanessa, RN, am scribing for, and in the presence of, Jose Luis Dick MD 12 :58. Assessment and Plan - Time spent with patient Time spent with patient: Less than 30 minutes (1) Atrial flutter with rapid ventricular response Status: Acute Assessment and plan: 76 year old white female with bioprosthetic MVR, PAF/PAFL, s/p 2 ablations years ago, VT/syncope, s/p DDD ICd implant, COPD. Now admitted with PNA/COPD exacerbation. -PAFL. Cont sotalol 160 mg bid. GFR preserved. Decrease cardizem to 180 mg bid. She was quite sensitive to high dose CCB in the past and did not tolerate them due to fatigue. Now in AP rhythm. -PNA/COPD. Cont Soul-Medrol, nebs w/Xopenex. Would avoid albuterol as it exacerbated flutter and tachycardia previously. On ceftriaxone. Obtain sputum culture. Pulm consult, she is still quite SOB/wheezing despite few days of treatment. She was able to tolerate sotalol 120 mg bid in the past w/o wheezing , this was increased to 160 mg bid few days ago. The atrial arrhytrhmia is quite symptomatic for her and she prefers medical management instead of ablation -Cont anticoagulation with coumadin. Follow INR -BP well controlled. cont losartan Current Visit: Yes (2) Atrial fibrillation Status: Acute Current Visit: Yes (3) Viral syndrome Status: Acute Current Visit: Yes (4) Obstructive sleep apnea Status: Acute Current Visit: No (5) Chronic anticoagulation Status: Chronic Current Visit: No (6) S/P MVR (mitral valve replacement) Status: Chronic Current Visit: No (7) Ventricular tachycardia Status: Chronic Current Visit: No Cardiology - PN: Subj Interval history: She is still quite SOB, has wheezing and productive cough. No feve. Now in atrial paced rhythm. Exam (Progress Note) - Constitutional Vitals: Period Temp Pulse Resp BP Sys/Eugene Pulse Ox Last 24 Hr 97.2 F-98.9 F 60-91 16-20 126-151/67-81 93-99 General appearance: no acute distress, other (obese) - Head Head exam: Present: normal inspection. Absent: contusion, hematoma - Eye Eye exam: Present: EOMI. Absent: periorbital swelling, laceration to eyelids Pupils: Present: CLEO. Absent: dilated, fixed, irregular - ENT ENT exam: Present: normal exam - Neck Neck exam: Present: normal inspection. Absent: tenderness - Respiratory Respiratory exam: Present: prolonged expiratory phase, rhonchi (throughout), wheezes (expirational wheeze tyler upper lung may). Absent: accessory muscle use - Cardiovascular Cardiovascular exam: Present: regular rate and rhythm, other (pacing noted). Absent: bradycardia, irregular rhythm, JVD - GI/Abdominal GI/Abdominal exam: Present: normal bowel sounds, soft. Absent: ascites, distended, firm, mass, tenderness - Extremities Exam Extremities exam: Present: normal capillary refill, full ROM. Absent: calf tenderness, edema - Back Exam Back exam: Present: normal inspection - Neurological Exam Neurological exam: Present: alert, oriented X3 - Psychiatric Psychiatric exam: Present: normal affect, normal mood. Absent: agitated, anxious - Skin Skin exam: Present: warm, dry, intact. Absent: abrasion, cyanosis, diaphoretic , petechiae, rash Result/EKG - Labs CBC & BMP: 11/05/16 04:28 11/05/16 04:28 Lab Results: I have reviewed the past 24 hour labs Labs: Laboratory Results - last 24 hr 11/08/16 04:49 INR 2.1 PT Patient/Control Mix 22.9 D - EKG EKG results: interpreted by me (atrially paced rhythm) Quality Measures - VTE Contraindication to Pharmacological VTE Prophylaxis: Already on Theraputic Agent , No Prophylaxis Needed Specialty Discharge - Follow Up or Referrals - Discharge Medications No Action Ondansetron Tab [Zofran Tab] 4 mg PO Q6H PRN PRN Reason: Nausea Beclomethasone 80 Mcg Inhaler [Qvar 80 Mcg] 80 mcg INH BID PRN #1 inhaler PRN Reason: SOB, wheezing Sotalol [Betapace] 120 mg PO BID #60 tablet Levothyroxine Tab [Synthroid Tab] 100 mcg PO DAILY Vitamin B Complex 1 each PO DAILY Cholecalciferol (Vitamin D3) [Vitamin D3] 5,000 unit PO DAILY Magnesium Oxide [Magnesium] 500 mg PO BID Warfarin [Coumadin] 5 mg PO DAILY Levalbuterol Tartrate [Xopenex Hfa Inhaler] 2 puff INH BID Acetaminophen Tab [Tylenol Tab] 1,000 mg PO Q8HR PRN PRN Reason: Pain ALPRAZolam [Alprazolam] 0.25 mg PO TID PRN PRN Reason: Anxiety Losartan Potassium [Losartan Potassium] 100 mg PO DAILY Diltiazem HCl [Cartia XT] 180 mg PO BID Kapil Reed Attila, MD, personally performed the services described in this documentation, ascribed by Yenifer Varma RN in my presence, and it is both accurate and complete .
--- NOTE | 2016-11-08 17:00 | Pulmonology Consult Note ---
Assessment and Plan (1) Acute bronchitis Status: Acute Assessment and plan: Her initial symptom certainly sounded like influenza. However nasal swabs were negative. This could've been a false negative. She has developed acute bronchitis. I will broaden her antibiotics and add Zithromax also put her on low-dose Solu-Medrol. She is on bronchodilators. Will add Atrovent. Current Visit: Yes (2) S/P MVR (mitral valve replacement) Status: Chronic Assessment and plan: She's had previous mitral valve replacement and is chronically on anticoagulants. Current Visit: No (3) Obstructive sleep apnea Status: Acute Assessment and plan: Patient using nasal CPAP at night. Current Visit: No (4) Atrial flutter with rapid ventricular response Status: Acute Assessment and plan: This is converted to a regular rhythm. It appears to be paced Current Visit: Yes History of Present Illness Chief complaint: cough shortness of breath History of present illness: Ms. Lim is a 76 year old female who has a history of asthma. She was a smoker until about 20 years ago and may have an element of COPD as well. She came in with a cough congestion and aching in her chest running nose and fever. Also had a headache. She had some nausea vomiting and diarrhea. Her became ill at the same time. This certainly is suggestive of influenza. Nasal swab was negative however for flu. She has had a persistent cough and wheezing. She says she feels a little better. She had atrial fibrillation with rapid ventricular response which has converted to paced rhythm now. She has a history of a previous mitral valve replacement and ablation therapy. She has an implantable defibrillator Home Medications Medication Instructions Recorded Confirmed Type Ondansetron Tab [Zofran Tab] 4 mg PO Q6H PRN 03/11/15 11/04/16 History Beclomethasone 80 Mcg Inhaler 80 mcg INH BID PRN #1 inhaler 04/28/16 11/04/16 Rx [Qvar 80 Mcg] Sotalol [Betapace] 120 mg PO BID #60 tablet 04/28/16 11/04/16 Rx Levothyroxine Tab [Synthroid Tab] 100 mcg PO DAILY 06/05/16 11/04/16 History Cholecalciferol (Vitamin D3) 5,000 unit PO DAILY 08/05/16 11/04/16 History [Vitamin D3] Magnesium Oxide [Magnesium] 500 mg PO BID 08/05/16 11/04/16 History Vitamin B Complex 1 each PO DAILY 08/05/16 11/04/16 History Warfarin [Coumadin] 5 mg PO DAILY 08/05/16 11/04/16 History ALPRAZolam [Alprazolam] 0.25 mg PO TID PRN 11/04/16 11/04/16 History Acetaminophen Tab [Tylenol Tab] 1,000 mg PO Q8HR PRN 11/04/16 11/04/16 History Diltiazem HCl [Cartia XT] 180 mg PO BID 11/04/16 11/04/16 History Levalbuterol Tartrate [Xopenex Hfa 2 puff INH BID 11/04/16 11/04/16 History Inhaler] Losartan Potassium [Losartan 100 mg PO DAILY 11/04/16 11/04/16 History Potassium] Allergies Allergy/AdvReac Type Severity Reaction Status Date / Time morphine Allergy Redness of Verified 08/05/16 14:25 Skin pantoprazole [From Protonix] AdvReac Intermediate Abdominal Verified 08/06/16 10 :06 Pain 12 point system: reviewed and no additional remarkable complaints except as stated - Constitutional Constitutional: Present: fatigue, fever(s), lethargy - Cardiovascular Cardiovascular: Present: dyspnea, dyspnea on exertion, palpitations - Respiratory Respiratory: Present: cough, dyspnea, dyspnea on exertion, wheezing - Gastrointestinal Gastrointestinal: Present: diarrhea, nausea, vomiting - Genitourinary Genitourinary: Present: urinary frequency - Musculoskeletal Musculoskeletal: Present: arthralgias, myalgias Exam (Pulmonay) H&P - Constitutional Vitals: Period Temp Pulse Resp BP Sys/Eugene Pulse Ox Last 24 Hr 97.1 F-99.1 F 59-91 16-20 126-137/67-74 92-98 Exam: Patient is alert and oriented. No longer has fever. Vital signs normal. HEENT : Pupils react to light throat is clear she has poor dental hygiene. Neck is supple no bruits. Chest reveals expiratory wheezes bilaterally. Equal breath sounds. Heart normal rate rhythm no murmurs. Pacemaker over the left upper chest. Abdomen soft nontender no masses. Bowel sounds present. Extremities no clubbing cyanosis or edema. Calves nontender. Medical,Surgical,& Family Hx - Medical History Cardio: History of: Cardiac Dysrhythmia (A-Fib, atrial flutter, ventricular tachycardia), CHF, Hypertension, Pacemaker, Cardiovascular Problems (Ablation x 2 Dr Courtney De La Cruz) Psychological: No history of: Anxiety Disorders HEENT: History of: Eye Problem (wears glasses) Endocrine: History of: Thyroid Disorder (takes synthroid) Respiratory: History of: Asthma, Obstructive Sleep Apnea, Pulmonary Embolism, Pneumonia Renal: History of: Renal Problems (urinary urgency) Gastrointestinal: History of: GERD, GI Problems Musculoskeletal: History of: Musculoskeletal Problems (joint stiffness) - Surgical History Cardiac Surgeries: Sugical HX of: Cardiac Catheterization, Cardiac Surgery ( mitral valve replacement, ablation x 2), Internal Defibrillator Thoracic Surgeries: Patient denies;: Organ Transplant Neurologic Surgeries: Patient denies: Neurologic Surgery HEENT Surgeries: Patient denies: Eye Surgery, Tonsilectomy & Adenoidectomy Abdominal Surgeries: Surgical HX of: Colonoscopy, EGD Patient denies: Abdominal Surgery Reproductive Surgeries: Surgical HX of;: Section, Hysterectomy Patient denies;: Genitourinary Surgery - Family History Family History: Reports;: Family Heart Disease (father and mother), Family Hypertension (mother) Comment Only: Family Cancer (sister had colon cancer) - Social History Smoking Status: Never smoker Frequency of Alcohol Use: None Type of Drug Use: None Results - Labs CBC & BMP: 11/05/16 04:28 11/05/16 04:28 Lab Results: I have reviewed the past 24 hour labs - Diagnostic Findings Procedure: Chest x-ray: image reviewed by me (chest x-ray from 11/04/2016 shows clear lungs. Evidence of implantable defibrillator over the left upper chest.) Quality Measures - VTE Contraindication to Pharmacological VTE Prophylaxis: Already on Theraputic Agent , No Prophylaxis Needed Specialty Discharge - Follow Up or Referrals - Discharge Medications No Action Ondansetron Tab [Zofran Tab] 4 mg PO Q6H PRN PRN Reason: Nausea Beclomethasone 80 Mcg Inhaler [Qvar 80 Mcg] 80 mcg INH BID PRN #1 inhaler PRN Reason: SOB, wheezing Sotalol [Betapace] 120 mg PO BID #60 tablet Levothyroxine Tab [Synthroid Tab] 100 mcg PO DAILY Vitamin B Complex 1 each PO DAILY Cholecalciferol (Vitamin D3) [Vitamin D3] 5,000 unit PO DAILY Magnesium Oxide [Magnesium] 500 mg PO BID Warfarin [Coumadin] 5 mg PO DAILY Levalbuterol Tartrate [Xopenex Hfa Inhaler] 2 puff INH BID Acetaminophen Tab [Tylenol Tab] 1,000 mg PO Q8HR PRN PRN Reason: Pain ALPRAZolam [Alprazolam] 0.25 mg PO TID PRN PRN Reason: Anxiety Losartan Potassium [Losartan Potassium] 100 mg PO DAILY Diltiazem HCl [Cartia XT] 180 mg PO BID
[2016-11-08] MEDS: WARFARIN 5 MG TABLET PO SCH (17:14)
[2016-11-08] MEDS: AZITHROMYCIN INJ 500 MG in SODIUM CHLORIDE 0.9% 250 ML IV SCH (17:55)
[2016-11-08] MEDS: IPRATROPIUM 500 MCG/2.5 ML NEB RESP TX SCH (19:27)
[2016-11-08] MEDS: ALBUTEROL 2.5 MG/3 ML NEB RESP TX SCH (19:27)
[2016-11-08] MEDS: ZALEPLON 5 MG CAPSULE PO PRN (20:33)
[2016-11-08] MEDS: ACETAMINOPHEN 500 MG TABLET PO PRN (20:33)
[2016-11-08] MEDS: DILTIAZEM CD 180 MG CAPSULE PO SCH (20:34)
[2016-11-09] MEDS: ALBUTEROL 2.5 MG/3 ML NEB RESP TX SCH ×4 (01:50→23:54)
[2016-11-09] MEDS: IPRATROPIUM 500 MCG/2.5 ML NEB RESP TX SCH ×3 (01:50→13:00)
[2016-11-09] MEDS: LEVOTHYROXINE 100 MCG TABLET PO SCH (06:18)
[2016-11-09 06:22] LABS: Basophils % 0.1 % (0.0-0.8); Hematocrit 40.6 VOL% (35.7-47.0); Hemoglobin 13.6 GM/DL (12.0-16.0); Immature Granulocytes % 0.8 %; Immature Granulocytes Absolute 0.08 #; Lymphocytes # 1.2 10*3/uL (1.4-4.0); Lymphocytes % 11.2 % (21.3-54.2); Mean Corpuscular HGB Conc 33.5 GM/DL (32-36); Mean Corpuscular Hemoglobin 31 PG (27-34); Mean Corpuscular Volume 92.9 FL (87-102); Monocytes # 0.6 10*3/uL (0.11-0.8); Monocytes % 5.3 % (1.7-12.7); Neutrophils # 8.7 10*3/uL (1.4-7.4); Neutrophils % 82.6 % (38.7-73.9); Platelet Count 101 10*3/uL (130-400); Red Blood Count 4.37 10*6/uL (3.8-5.5); Red Cell Distribution Width 13.1 % (9.3-17.3); White Blood Count 10.5 10*3/uL (4.5-13.71)
[2016-11-09 06:31] LABS: INR 2.6
[2016-11-09 06:32] LABS: INR 2.5
[2016-11-09 06:33] LABS: PT Patient Result 28.7 SECS
[2016-11-09 06:34] LABS: PT Patient Result 28.2 SECS
[2016-11-09 06:54] LABS: Calcium 8.8 MG/DL (8.5-10.1); Magnesium 2.1 MG/DL (1.8-2.4); Osmolality,Calculated 286.8 MOS/KG (273-304); Potassium 4.6 MMOL/L (3.5-5.1)
--- NOTE | 2016-11-09 08:02 | XRay Report ---
XR chest 2V Date: 11/09/2016 4:00 AM History: Bronchitis, cough Comparison: 11/04/2016 Technique: PA and lateral chest Findings: The heart remains borderline in size with prior median sternotomy and cardiac valve replacement. Left subclavian atrioventricular AICD. Chronic scarring in the lungs with blunting of left costophrenic angle. Stable mediastinum with degenerative changes. Impression: COPD with chronic scarring in patient with prior median sternotomy and cardiac valve replacement. Stable left subclavian atrioventricular AICD. Very small left pleural effusion. PROCEDURE INTERPRETED AT [facility] DEPARTMENT OF RADIOLOGY Final Report Signed by: Dr. Jacqueline Vargas
--- NOTE | 2016-11-09 08:16 | Pulmonology Progress Note ---
Pulmonary - PN: Subj Interval history: This 76-year-old white female has asthma and COPD. She came in about a week ago with an exacerbation with acute bronchitis. Initial symptoms fit best with influenza, however her nasal swab for influenza were negative. We added steroids yesterday and Atrovent. She's feeling better today. Needs another day or so with this dose and we can start tapering after that. She also has arrhythmia problems so we are using Xopenex instead of albuterol. Exam (Progress Note) - Constitutional Vitals: Period Temp Pulse Resp BP Sys/Eugene Pulse Ox Last 24 Hr 97.1 F-99.1 F 59-91 16-20 126-145/67-74 92-100 Exam: She is alert vital signs normal. Pupils react to light. Throat clear. Neck supple no bruits. Chest reveals mild expiratory wheezes, sounds better than yesterday. Heart normal rate rhythm no murmurs. She has a pacemaker/AICD over her left upper chest. Abdomen is soft nontender no masses. Bowel sounds present. Extremities no clubbing cyanosis or edema. Calves nontender. She moves all 4 extremities well. Results - Labs CBC & BMP: 11/09/16 05:52 11/09/16 05:52 Lab Results: I have reviewed the past 24 hour labs - Diagnostic Findings Procedure: Chest x-ray: image reviewed by me (lungs are clear. She may have a tiny left pleural effusion versus pleural reaction. Pacemaker noted over left upper chest.) Assessment and Plan (1) Acute bronchitis Status: Acute Assessment and plan: Her initial symptom certainly sounded like influenza. However nasal swabs were negative. This could've been a false negative. She has developed acute bronchitis. I will broaden her antibiotics and add Zithromax also put her on low-dose Solu-Medrol. She is on bronchodilators. Will add Atrovent. 11/09/2016 patient is better on current medications. We'll start tapering steroids tomorrow. Current Visit: Yes (2) S/P MVR (mitral valve replacement) Status: Chronic Assessment and plan: She's had previous mitral valve replacement and is chronically on anticoagulants. 11/09/2016 patient on Coumadin and therapeutic PT/INR is noted. Current Visit: No (3) Obstructive sleep apnea Status: Acute Assessment and plan: Patient using nasal CPAP at night. Current Visit: No (4) Atrial flutter with rapid ventricular response Status: Acute Assessment and plan: This is converted to a regular rhythm. It appears to be paced 11/09/2016 has a regular rhythm now. Current Visit: Yes Specialty Discharge - Follow Up or Referrals - Discharge Medications No Action Ondansetron Tab [Zofran Tab] 4 mg PO Q6H PRN PRN Reason: Nausea Beclomethasone 80 Mcg Inhaler [Qvar 80 Mcg] 80 mcg INH BID PRN #1 inhaler PRN Reason: SOB, wheezing Sotalol [Betapace] 120 mg PO BID #60 tablet Levothyroxine Tab [Synthroid Tab] 100 mcg PO DAILY Vitamin B Complex 1 each PO DAILY Cholecalciferol (Vitamin D3) [Vitamin D3] 5,000 unit PO DAILY Magnesium Oxide [Magnesium] 500 mg PO BID Warfarin [Coumadin] 5 mg PO DAILY Levalbuterol Tartrate [Xopenex Hfa Inhaler] 2 puff INH BID Acetaminophen Tab [Tylenol Tab] 1,000 mg PO Q8HR PRN PRN Reason: Pain ALPRAZolam [Alprazolam] 0.25 mg PO TID PRN PRN Reason: Anxiety Losartan Potassium [Losartan Potassium] 100 mg PO DAILY Diltiazem HCl [Cartia XT] 180 mg PO BID
[2016-11-09] MEDS: MULTIVITAMIN (BEROCCA) TABLET PO SCH (08:44)
[2016-11-09] MEDS: SOTALOL 80 MG TABLET PO SCH ×2 (08:44→20:13)
[2016-11-09] MEDS: LOSARTAN 50 MG TABLET PO SCH (08:45)
[2016-11-09] MEDS: DILTIAZEM CD 180 MG CAPSULE PO SCH ×2 (08:45→20:14)
[2016-11-09] MEDS: CHOLECALCIFEROL 1,000 UNIT TABLET PO SCH (08:45)
[2016-11-09] MEDS: DOCUSATE SODIUM 100 MG CAPSULE PO SCH ×2 (08:46→20:55)
[2016-11-09] MEDS: cefTRIAXone 1,000 MG in SODIUM CHLORIDE 0.9% 100 ML IV SCH (08:48)
--- NOTE | 2016-11-09 14:15 | Cardiology Progress Note ---
Kojo Reed Vanessa, RN, am scribing for, and in the presence of, Jose Luis Dick MD 14 :14. Assessment and Plan - Time spent with patient Time spent with patient: Less than 30 minutes (1) Atrial flutter with rapid ventricular response Status: Acute Assessment and plan: 76 year old white female with bioprosthetic MVR, PAF/PAFL, s/p 2 ablations years ago, VT/syncope, s/p DDD ICd implant, COPD. Now admitted with PNA/COPD exacerbation. -PAFL. Cont sotalol 160 mg bid. GFR preserved. Decrease cardizem to 180 mg bid. She was quite sensitive to high dose CCB in the past and did not tolerate them due to fatigue. Now in AP rhythm. -PNA/COPD. Responding to abx/bronchodilator/steroid. -Cont anticoagulation with coumadin. INR 2.5 -BP well controlled. cont losartan -Once pulm issues stable, d/c home. Potentially tomorrow Current Visit: Yes (2) Atrial fibrillation Status: Acute Current Visit: Yes (3) Viral syndrome Status: Acute Current Visit: Yes (4) Obstructive sleep apnea Status: Acute Current Visit: No (5) Chronic anticoagulation Status: Chronic Current Visit: No (6) S/P MVR (mitral valve replacement) Status: Chronic Current Visit: No (7) Ventricular tachycardia Status: Chronic Current Visit: No Cardiology - PN: Subj Interval history: SOB and wheezing is improved today. Continued to be atrially paced without occurrence of dysrhythmia. BP is 127/72. Exam (Progress Note) - Constitutional Vitals: Period Temp Pulse Resp BP Sys/Eugene Pulse Ox Last 24 Hr 97.0 F-99.1 F 57-70 16-20 126-145/67-79 93-100 General appearance: no acute distress, other (obese) - Head Head exam: Present: normal inspection. Absent: contusion, hematoma - Eye Eye exam: Absent: periorbital swelling - ENT ENT exam: Present: normal exam - Neck Neck exam: Absent: tenderness - Respiratory Respiratory exam: Present: wheezes (expirational wheeze tyler upper lung may). Absent: accessory muscle use - Cardiovascular Cardiovascular exam: Present: regular rate and rhythm. Absent: bradycardia, irregular rhythm, tachycardia - GI/Abdominal GI/Abdominal exam: Present: normal bowel sounds, soft. Absent: ascites, distended, firm, mass, tenderness - Extremities Exam Extremities exam: Present: normal inspection, normal capillary refill, full ROM. Absent: calf tenderness, edema - Back Exam Back exam: Present: normal inspection - Neurological Exam Neurological exam: Present: alert, oriented X3 - Psychiatric Psychiatric exam: Present: normal affect, normal mood - Skin Skin exam: Present: warm, dry, intact. Absent: cyanosis, diaphoretic, rash Result/EKG - Labs CBC & BMP: 11/09/16 05:52 11/09/16 05:52 Lab Results: I have reviewed the past 24 hour labs Labs: Laboratory Results - last 24 hr 11/09/16 11/09/16 11/09/16 05:52 05:52 05:52 WBC 10.5 RBC 4.37 Hgb 13.6 Hct 40.6 MCV 92.9 MCH 31 MCHC 33.5 RDW 13.1 Plt Count 101 L MPV 14.0 H Neut % (Auto) 82.6 H Lymph % (Auto) 11.2 L [place] % (Auto) 5.3 Eos % (Auto) 0.0 Baso % (Auto) 0.1 Neut # (Auto) 8.7 H Lymph # (Auto) 1.2 L [place] # (Auto) 0.6 Eos # (Auto) 0.0 Baso # (Auto) 0.0 Immature Gran % 0.8 Nucleated RBC % 0.0 Immature Gran # 0.08 Nucleated RBCs # 0.00 INR 2.6 PT Patient/Control Mix 28.7 D Sodium 144 Potassium 4.6 Chloride 104 Carbon Dioxide 28 Anion Gap 16.6 H BUN 12 Creatinine 0.70 GFR Calculation 102 BUN/Creatinine Ratio 17.00 Glucose 124 H Calculated Osmolality 286.8 Calcium 8.8 Magnesium 2.1 11/09/16 05:52 WBC RBC Hgb Hct MCV MCH MCHC RDW Plt Count MPV Neut % (Auto) Lymph % (Auto) [place] % (Auto) Eos % (Auto) Baso % (Auto) Neut # (Auto) Lymph # (Auto) [place] # (Auto) Eos # (Auto) Baso # (Auto) Immature Gran % Nucleated RBC % Immature Gran # Nucleated RBCs # INR 2.5 PT Patient/Control Mix 28.2 Sodium Potassium Chloride Carbon Dioxide Anion Gap BUN Creatinine GFR Calculation BUN/Creatinine Ratio Glucose Calculated Osmolality Calcium Magnesium - EKG EKG results: interpreted by me (atrially paced) Quality Measures - VTE Contraindication to Pharmacological VTE Prophylaxis: Already on Theraputic Agent , No Prophylaxis Needed Specialty Discharge - Follow Up or Referrals - Discharge Medications No Action Ondansetron Tab [Zofran Tab] 4 mg PO Q6H PRN PRN Reason: Nausea Beclomethasone 80 Mcg Inhaler [Qvar 80 Mcg] 80 mcg INH BID PRN #1 inhaler PRN Reason: SOB, wheezing Sotalol [Betapace] 120 mg PO BID #60 tablet Levothyroxine Tab [Synthroid Tab] 100 mcg PO DAILY Vitamin B Complex 1 each PO DAILY Cholecalciferol (Vitamin D3) [Vitamin D3] 5,000 unit PO DAILY Magnesium Oxide [Magnesium] 500 mg PO BID Warfarin [Coumadin] 5 mg PO DAILY Levalbuterol Tartrate [Xopenex Hfa Inhaler] 2 puff INH BID Acetaminophen Tab [Tylenol Tab] 1,000 mg PO Q8HR PRN PRN Reason: Pain ALPRAZolam [Alprazolam] 0.25 mg PO TID PRN PRN Reason: Anxiety Losartan Potassium [Losartan Potassium] 100 mg PO DAILY Diltiazem HCl [Cartia XT] 180 mg PO BID Kapil Reed Attila, MD, personally performed the services described in this documentation, ascribed by Yenifer Varma RN in my presence, and it is both accurate and complete .
[2016-11-09] MEDS: WARFARIN 5 MG TABLET PO SCH (17:00)
[2016-11-09] MEDS: AZITHROMYCIN INJ 500 MG in SODIUM CHLORIDE 0.9% 250 ML IV SCH (17:02)
[2016-11-09] MEDS: ACETAMINOPHEN 500 MG TABLET PO PRN (20:13)
[2016-11-09] MEDS: ZALEPLON 5 MG CAPSULE PO PRN (20:13)
[2016-11-09] MEDS: ALPRAZolam 0.25 MG TABLET PO PRN (20:14)
[2016-11-10] MEDS: IPRATROPIUM 500 MCG/2.5 ML NEB RESP TX SCH ×4 (00:14→13:12)
[2016-11-10] MEDS: ALBUTEROL 2.5 MG/3 ML NEB RESP TX SCH ×4 (00:14→13:16)
[2016-11-10 05:20] LABS: Eosinophils % 0.1 % (0.00-10.9); Hematocrit 39.4 VOL% (35.7-47.0); Hemoglobin 13.1 GM/DL (12.0-16.0); Lymphocytes # 1.8 10*3/uL (1.4-4.0); Lymphocytes % 18.2 % (21.3-54.2); Mean Corpuscular HGB Conc 33.2 GM/DL (32-36); Mean Corpuscular Hemoglobin 31 PG (27-34); Mean Corpuscular Volume 93.6 FL (87-102); Mean Platelet Volume 13.7 FL (9.6-12.0); Monocytes % 9.7 % (1.7-12.7); Neutrophils # 7.2 10*3/uL (1.4-7.4); Platelet Count 97 10*3/uL (130-400); Red Blood Count 4.21 10*6/uL (3.8-5.5); Red Cell Distribution Width 13.2 % (9.3-17.3); White Blood Count 10.1 10*3/uL (4.5-13.71)
[2016-11-10 05:37] LABS: INR 3.4
[2016-11-10 05:39] LABS: PT Patient Result 39.4 SECS
[2016-11-10 05:43] LABS: Hypochromasia 1+; Platelet Estimate Decreased
[2016-11-10 05:48] LABS: Calcium 8.5 MG/DL (8.5-10.1); Magnesium 2.2 MG/DL (1.8-2.4); Osmolality,Calculated 286.8 MOS/KG (273-304); Potassium 4.6 MMOL/L (3.5-5.1)
[2016-11-10] MEDS: LEVOTHYROXINE 100 MCG TABLET PO SCH (06:00)
--- NOTE | 2016-11-10 07:54 | Pulmonology Progress Note ---
Pulmonary - PN: Subj Interval history: This 76-year-old white female has asthma and COPD. She came in about a week ago with an exacerbation with acute bronchitis. Initial symptoms fit best with influenza, however her nasal swab for influenza were negative. We added steroids yesterday and Atrovent. She's feeling better today. Needs another day or so with this dose and we can start tapering after that. She also has arrhythmia problems so we are using Xopenex instead of albuterol. 11/10/2016 she's feeling much better today. Wheezing has subsided. From my standpoint she can be changed to oral medications and discharged. She should continue on a Xopenex inhaler when necessary. Exam (Progress Note) - Constitutional Vitals: Period Temp Pulse Resp BP Sys/Eugene Pulse Ox Last 24 Hr 97.0 F-99.3 F 57-78 16-20 126-145/62-79 94-99 Exam: She is alert vital signs normal. Pupils react to light. Throat clear. Neck supple no bruits. Chest reveals minimal expiratory wheezes, sounds better than yesterday. Heart normal rate rhythm no murmurs. She has a pacemaker/AICD over her left upper chest. Abdomen is soft nontender no masses. Bowel sounds present. Extremities no clubbing cyanosis or edema. Calves nontender. She moves all 4 extremities well. Results - Labs CBC & BMP: 11/10/16 04:34 11/10/16 04:34 Lab Results: I have reviewed the past 24 hour labs Assessment and Plan (1) Acute bronchitis Status: Acute Assessment and plan: Her initial symptom certainly sounded like influenza. However nasal swabs were negative. This could've been a false negative. She has developed acute bronchitis. I will broaden her antibiotics and add Zithromax also put her on low-dose Solu-Medrol. She is on bronchodilators. Will add Atrovent. 11/09/2016 patient is better on current medications. We'll start tapering steroids tomorrow. 11/10/2016 she is improved. Can change to oral medications. Current Visit: Yes (2) S/P MVR (mitral valve replacement) Status: Chronic Assessment and plan: She's had previous mitral valve replacement and is chronically on anticoagulants. 11/09/2016 patient on Coumadin and therapeutic PT/INR is noted. Current Visit: No (3) Obstructive sleep apnea Status: Acute Assessment and plan: Patient using nasal CPAP at night. 11/10/2016 continue with CPAP at night. Current Visit: No (4) Atrial flutter with rapid ventricular response Status: Acute Assessment and plan: This is converted to a regular rhythm. It appears to be paced 11/09/2016 has a regular rhythm now. 11/10/2016 remains in regular rhythm Current Visit: Yes
[2016-11-10] MEDS ORDERED: AZITHROMYCIN 250 MG TABLET PO SCH (09:00)
[2016-11-10] MEDS: MULTIVITAMIN (BEROCCA) TABLET PO SCH (09:15)
[2016-11-10] MEDS: LOSARTAN 50 MG TABLET PO SCH (09:15)
[2016-11-10] MEDS: CHOLECALCIFEROL 1,000 UNIT TABLET PO SCH (09:15)
[2016-11-10] MEDS: SOTALOL 80 MG TABLET PO SCH (09:15)
[2016-11-10] MEDS: DOCUSATE SODIUM 100 MG CAPSULE PO SCH (09:16)
[2016-11-10] MEDS: DILTIAZEM CD 180 MG CAPSULE PO SCH (09:16)
--- NOTE | 2016-11-10 14:21 | Discharge Summary ---
Addendum entered and electronically signed by Rossana Hayes NP 11/10/16 14: 21: Adding to discharge meds: ECASA 81mg orally daily. Original Note: Kojo Reed Vanessa, RN, am scribing for, and in the presence of, Rossana Hayes NP 14:08. <Rossana Hayes - Last Filed: 11/10/16 14:10> Hospital Course - Hospital Course Hospital Course: Mrs. Lim, 76WF, routinely followed by Dr. Dick. Presented to the ER of [facility] Nov 04, 2016 with fever, congestion, cough, and wheezing. Found to be in atrial fib/flutter with rapid ventricular response at that time. She was admitted to telemetry/cardiology service for arrhythmia. Past cardiac history includes mitral valve replacement, with maze procedure at the time of her mitral valve replacement with 2 ablations for atrial dysrhythmias. She has had a wide complex tachycardia felt to be ventricular tachycardia for which she has an AICD implanted. Known atrial flutter monitored with med adjustments during the hospital stay. She was treated for PNA and COPD exacerbation during the hospital stay. He was slow to but finally did improve. She was swapped for and tested negative for influenza. Steroids were added to her medication regimen as well as Atrovent. Her wheezing improved and subsided. She is anxious for release home and she is being discharged home today in stable condition. Discharge medications will include the following: Betapace 160 mg orally twice a day Diltiazem CD 180 mg one by mouth twice a day Azithromycin 250 mg orally daily for 3 more days. She will resume her other preadmission medications including Xanax, beclomethasone inhalation therapy when necessary, Levaquin levothyroxine, losartan and warfarin 5 orally each evening. She will be given additional discharge follow-up appointment with Dr. Dick in approximately one to 2 weeks. She will get an EKG, BMP, magnesium and CBC at that visit. - Time spent with patient Time with patient DS: Greater than 30 minutes Diagnosis - Discharge Diagnosis (1) Atrial flutter with rapid ventricular response Status: Resolved (2) Atrial fibrillation Status: Chronic (3) Viral syndrome Status: Resolved (4) Obstructive sleep apnea Status: Chronic (5) Chronic anticoagulation Status: Chronic (6) S/P MVR (mitral valve replacement) Status: Chronic (7) Ventricular tachycardia Status: Chronic Specialty Discharge - Follow Up or Referrals Follow up with: Jose Luis Dick MD [Physician] - 1 Week (Labs November 12, 2016 at 9:55AM BMp, Mg, CBC, INR Appointment November 17, 2016 at 2:30pm) Raghavendra Sainz MD [Physician] - 11/29/16 1:00 pm () Discharge Plan - Discharge Data Disposition: Disch To Home/Self Care Condition at Discharge: Stable Discharge Diet: heart healthy Activity: resume usual activities as tolerated Hygiene: no restrictions Weight Bearing at Discharge: full weight bearing Driving: not until seen by doctor Contact your physician if you experience:: fever over 101, Difficulty voiding, Redness or swelling, Nausea/Vomiting, Shortness of breath, Bleeding, pain uncontrolled by pain medications - Discharge Medications New Azithromycin Tab [Zithromax Tab] 250 mg PO DAILY #5 tablet Sotalol [Betapace] 160 mg PO BID #60 tablet Continue Ondansetron Tab [Zofran Tab] 4 mg PO Q6H PRN PRN Reason: Nausea Beclomethasone 80 Mcg Inhaler [Qvar 80 Mcg] 80 mcg INH BID PRN #1 inhaler PRN Reason: SOB, wheezing Levothyroxine Tab [Synthroid Tab] 100 mcg PO DAILY Vitamin B Complex 1 each PO DAILY Cholecalciferol (Vitamin D3) [Vitamin D3] 5,000 unit PO DAILY Magnesium Oxide [Magnesium] 500 mg PO BID Warfarin [Coumadin] 5 mg PO DAILY Levalbuterol Tartrate [Xopenex Hfa Inhaler] 2 puff INH BID Acetaminophen Tab [Tylenol Tab] 1,000 mg PO Q8HR PRN PRN Reason: Pain ALPRAZolam [Alprazolam] 0.25 mg PO TID PRN PRN Reason: Anxiety Losartan Potassium 100 mg PO DAILY Diltiazem HCl [Cartia XT] 180 mg PO BID Discontinued Sotalol [Betapace] 120 mg PO BID #60 tablet - Follow Up or Referral Follow Up: Jose Luis Dick MD [Physician] - 1 Week (Labs November 12, 2016 at 9:55AM BMp, Mg, CBC, INR Appointment November 17, 2016 at 2:30pm) Raghavendra Sainz MD [Physician] - 11/29/16 1:00 pm () - Forms/Instructions Instructions: Atrial Fibrillation (DC), Dehydration (DC) Exam - Constitutional Vitals: Period Temp Pulse Resp BP Sys/Eugene Pulse Ox Last 24 Hr 98.7 F 60-70 18-20 125/71 90-98 Exam: General: Appears well with no apparent distress. Pleasant and cooperative. Appears comfortable. HEENT: PERRL, normocephalic, atraumatic. Mucous membranes moist. No jaundice noted. Conjunctiva moist and clear, sclerae anicteric Neck: No JVD/HJR, no thyromegaly or lymphadenopathy noted. No carotid bruit appreciated Cardiac: Irregularly irregular rate and rhythm. II/ HSM heard best at BUSB. Lungs: Clear to auscultation without accessory muscle use to assist the respiratory pattern. Not requiring oxygen. Abdomen: Soft, bowel sounds normoactive. Nontender and nondistended. No abdominal bruit or thrill noted. No masses noted. Musculoskeletal: No fluid collection. Decreased range of motion is noted. Extremities: No clubbing, cyanosis noted. No edema noted. Upper extremity pulses 2+. Lower extremity pulses 2+. Capillary refill less than 3 seconds. Skin: No unusual lesions or rashes. No skin breakdown appreciated. Neuro: Awake, alert and oriented 3. Moves all extremities well without hemiparesis or paralysis. No essential tremor is appreciated. Discharge Results - Imaging and Cardiology Procedure: Chest x-ray: report reviewed by me DS: Provider Consults: 11/08/16 12:50 Consult to Physician [CONS] Routine Comment: Consulting Provider: Consult to Specialist Group: Pulmonology When should Consulting Provider be notified: Now Discharging clinician: Jose Luis Dick MD Expected date of discharge: 11/10/16 <Jose Luis Dick - Last Filed: 11/11/16 12:31> Hospital Course - Hospital Course Hospital Course: Interviewed and examined that the patient's. Discussed findings with the nurse practitioner. Mrs. Lim will be discharged home, she was treated for bronchitis/pneumonia. This also exacerbated her chronic, recurrent symptomatic atypical atrial flutter. Sotalol was increased to 160 mg bid, the renal function was normal. No proarrhythmia was noted. Anticoagulation was continued with Coumadin. She will follow-up with EP, Dr. Dick in 2 weeks. 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 Amin. Diagnosis - Discharge Diagnosis (1) Atrial flutter with rapid ventricular response Status: Resolved (2) Atrial fibrillation Status: Chronic (3) Viral syndrome Status: Resolved (4) Obstructive sleep apnea Status: Chronic (5) Chronic anticoagulation Status: Chronic (6) S/P MVR (mitral valve replacement) Status: Chronic (7) Ventricular tachycardia Status: Chronic Abigail Reed Bonnie E, NP, personally performed the services described in this documentation, ascribed by Yenifer Varma RN in my presence, and it is both accurate and complete 420 .
[2016-11-10 15:55] VITALS: BP 125/71
== END 2016-11-10 16:09 | disposition home or self-care (01) | DRG 309 ==
LOC: EDUNIT# → N.ED 13:38 → N.EDINP 13:38 → N.TELES 17:46
PROVIDERS: ADMIT Internal Medicine Cardiovascular Disease; ATTEND Internal Medicine Cardiovascular Disease

== ENCOUNTER 2020-05-12 17:49 | Inpatient (IN) ==
[2020-05-12] MEDS ORDERED: SODIUM CHLORIDE 0.9% 1,000 ML IV STA (18:21)
[2020-05-12 18:46] LABS: Basophils # 0.1 10*3/uL (0.0-0.2); Basophils % 0.4 % (0.0-0.8); Hematocrit 39.4 VOL% (35.7-47.0); Hemoglobin 12.9 GM/DL (12.0-16.0); Immature Granulocytes % 0.8 %; Lymphocytes # 0.9 10*3/uL (1.4-4.0); Lymphocytes % 7.2 % (21.3-54.2); Mean Corpuscular HGB Conc 32.7 GM/DL (32-36); Mean Corpuscular Volume 87.6 FL (87-102); Mean Platelet Volume 12.9 FL (9.6-12.0); Monocytes % 7.6 % (1.7-12.7); Platelet Count 169 T/CUMM (130-400); Red Cell Distribution Width 13.2 % (9.3-17.3); White Blood Count 13.1 T/CUMM (4-12)
[2020-05-12 18:58] LABS: Albumin 2.7 G/DL (3.4-5.0); Bilirubin,Total 0.6 MG/DL (0.2-1.0); Calcium 8.7 MG/DL (8.5-10.1); INR 1.7; Osmolality,Calculated 265.4 MOS/KG (273-304); PT Patient Result 17.7 SECS (9.8-11.9); Total Protein 7.9 G/DL (6.4-8.3)
[2020-05-12 19:10] LABS: Apearance,Urine CLEAR (Clear); Bacteria,Urine Occasional /HPF (Few); Bilirubin,Urine Negative (Negative); Blood, Urine Negative (Negative); Glucose,Urine (UA) Negative (Negative); Hyaline Casts,Urine 15 /LPF (0-3); Ketones,Urine Negative (Negative); Mucus,Urine Occasional /LPF (Occasional); Nitrite,Urine Negative (Negative); Protein,Urine 30 MG/DL; Squamous Epithelial Cell,Urine Occasional /HPF (0-10); Urine Color Yellow (Yellow); Urine Specific Gravity 1.018 (1.001-1.035); Urine Urobilinogen < 2.0 EU/DL (0.2-1.0)
[2020-05-12] MEDS ORDERED: DEXTROSE 50% 25 GM/50 ML VIAL IV PRN (20:26)
[2020-05-12] MEDS ORDERED: GLUCAGON 1 MG VIAL IM PRN (20:26)
[2020-05-12] MEDS ORDERED: cefTRIAXone 1,000 MG in SYRINGE 1 EACH IV SCH (20:30)
[2020-05-12] MEDS ORDERED: SODIUM CHLORIDE 0.9% 100 ML IV ONE (20:43)
[2020-05-12] MEDS: ONDANSETRON 4 MG/2 ML VIAL IV PRN (20:45)
[2020-05-12] MEDS: cefTRIAXone 1,000 MG in SYRINGE 1 EACH IV SCH (20:47)
[2020-05-12] MEDS: metroNIDAZOLE INJ 500 MG in PREMIX 1 EACH IV SCH (23:10)
[2020-05-12] MEDS: METOPROLOL TARTRATE 100 MG TABLET PO SCH (23:10)
[2020-05-12] MEDS: WARFARIN 2.5 MG TABLET PO SCH (23:10)
[2020-05-12] MEDS: SODIUM CHLORIDE 0.9% 1,000 ML IV SCH (23:11)
[2020-05-13] MEDS: ONDANSETRON 4 MG/2 ML VIAL IV PRN ×3 (04:24→21:19)
[2020-05-13] MEDS: LEVOTHYROXINE 88 MCG TABLET PO SCH (05:31)
[2020-05-13] MEDS: metroNIDAZOLE INJ 500 MG in PREMIX 1 EACH IV SCH (05:31)
[2020-05-13 06:16] LABS: INR 1.7; PT Patient Result 18.1 SECS (9.8-11.9)
[2020-05-13 06:24] LABS: Basophils # 0.1 10*3/uL (0.0-0.2); Basophils % 0.4 % (0.0-0.8); Eosinophils % 0.2 % (0.00-10.9); Hematocrit 33.9 VOL% (35.7-47.0); Immature Granulocytes % 0.7 %; Immature Granulocytes Absolute 0.09 #; Lymphocytes # 1.5 10*3/uL (1.4-4.0); Lymphocytes % 11.3 % (21.3-54.2); Mean Corpuscular HGB Conc 32.4 GM/DL (32-36); Mean Corpuscular Volume 88.3 FL (87-102); Mean Platelet Volume 12.8 FL (9.6-12.0); Neutrophils % 78.4 % (38.7-73.9); Platelet Count 161 T/CUMM (130-400); Red Blood Count 3.84 MC/CUMM (3.8-5.5); Red Cell Distribution Width 13.4 % (9.3-17.3); White Blood Count 13.2 T/CUMM (4-12)
[2020-05-13 06:47] LABS: Albumin 2.2 G/DL (3.4-5.0); Bilirubin,Total 1.8 MG/DL (0.2-1.0); Calcium 8.2 MG/DL (8.5-10.1); Total Protein 6.8 G/DL (6.4-8.3)
[2020-05-13] MEDS: METOPROLOL TARTRATE 100 MG TABLET PO SCH ×2 (08:17→21:14)
[2020-05-13] MEDS ORDERED: metroNIDAZOLE INJ 500 MG in PREMIX 1 EACH IV SCH (17:00)
[2020-05-13] MEDS: SODIUM CHLORIDE 0.9% 1,000 ML IV SCH ×2 (17:37→21:13)
[2020-05-13] MEDS: WARFARIN 5 MG TABLET PO SCH (17:39)
[2020-05-13] MEDS: cefTRIAXone 1,000 MG in SYRINGE 1 EACH IV SCH (21:14)
[2020-05-14] MEDS: LEVOTHYROXINE 88 MCG TABLET PO SCH (05:50)
[2020-05-14] MEDS: ONDANSETRON 4 MG/2 ML VIAL IV PRN ×4 (06:03→21:07)
[2020-05-14 06:18] LABS: Basophils # 0.1 10*3/uL (0.0-0.2); Basophils % 0.6 % (0.0-0.8); Eosinophils # 0.1 10*3/uL (0.0-0.87); Eosinophils % 0.8 % (0.00-10.9); Hematocrit 33.8 VOL% (35.7-47.0); Hemoglobin 10.8 GM/DL (12.0-16.0); Immature Granulocytes Absolute 0.11 #; Lymphocytes # 1.6 10*3/uL (1.4-4.0); Lymphocytes % 14.7 % (21.3-54.2); Mean Corpuscular Volume 89.2 FL (87-102); Mean Platelet Volume 12.4 FL (9.6-12.0); Monocytes % 11.3 % (1.7-12.7); Neutrophils % 71.6 % (38.7-73.9); Platelet Count 154 T/CUMM (130-400); Red Blood Count 3.79 MC/CUMM (3.8-5.5); Red Cell Distribution Width 13.3 % (9.3-17.3); White Blood Count 10.7 T/CUMM (4-12)
[2020-05-14 06:32] LABS: INR 2.1; PT Patient Result 21.9 SECS (9.8-11.9)
[2020-05-14 06:37] LABS: Calcium 8.1 MG/DL (8.5-10.1); Osmolality,Calculated 272.7 MOS/KG (273-304)
[2020-05-14 06:39] LABS: Hypochromasia Slight; Platelet Estimate Adequate
[2020-05-14] MEDS: METOPROLOL TARTRATE 100 MG TABLET PO SCH ×3 (08:30→23:31)
[2020-05-14] MEDS ORDERED: MAGNESIUM SULF RIDER 4 GM in PREMIX 1 EACH IV PRN (09:36)
[2020-05-14] MEDS ORDERED: MAGNESIUM SULF RIDER 2 GM in PREMIX 1 EACH IV PRN (09:36)
[2020-05-14] MEDS ORDERED: DILTIAZEM 50 MG/10 ML VIAL IV ONE (09:53)
[2020-05-14] MEDS ORDERED: VANCOMYCIN INJ 1,000 MG in SODIUM CHLORIDE 0.9% 250 ML IV SCH (10:00)
[2020-05-14] MEDS: dilTIAZem Drip 125 MG/125 ML PREMIX IV SCH (10:24)
[2020-05-14] MEDS: SODIUM CHLORIDE 0.9% 1,000 ML IV SCH ×4 (12:40→21:08)
[2020-05-14] MEDS: ACETAMINOPHEN 325 MG TABLET PO PRN (14:52)
[2020-05-14] MEDS ORDERED: POTASSIUM CHLORIDE 20 MEQ TABLET PO ONE (16:00)
[2020-05-14] MEDS ORDERED: SOTALOL 80 MG TABLET PO ONE (17:04)
[2020-05-14] MEDS: SOTALOL 80 MG TABLET PO SCH (23:21)
[2020-05-14] MEDS: WARFARIN 2.5 MG TABLET PO SCH (23:21)
[2020-05-15] MEDS: ONDANSETRON 4 MG/2 ML VIAL IV PRN ×4 (03:45→20:41)
[2020-05-15] MEDS: SODIUM CHLORIDE 0.9% 1,000 ML IV SCH ×2 (05:14→13:35)
[2020-05-15] MEDS: SOTALOL 80 MG TABLET PO SCH ×3 (05:15→20:41)
[2020-05-15] MEDS: LEVOTHYROXINE 88 MCG TABLET PO SCH (05:15)
[2020-05-15 05:39] LABS: Basophils # 0.1 10*3/uL (0.0-0.2); Basophils % 0.9 % (0.0-0.8); Eosinophils # 0.1 10*3/uL (0.0-0.87); Eosinophils % 0.9 % (0.00-10.9); Hematocrit 36.7 VOL% (35.7-47.0); Hemoglobin 11.9 GM/DL (12.0-16.0); Immature Granulocytes % 1.9 %; Lymphocytes # 1.8 10*3/uL (1.4-4.0); Lymphocytes % 17.1 % (21.3-54.2); Mean Corpuscular HGB Conc 32.4 GM/DL (32-36); Mean Corpuscular Volume 88.2 FL (87-102); Mean Platelet Volume 12.7 FL (9.6-12.0); Monocytes % 9.8 % (1.7-12.7); Neutrophils % 69.4 % (38.7-73.9); Platelet Count 168 T/CUMM (130-400); Red Blood Count 4.16 MC/CUMM (3.8-5.5); Red Cell Distribution Width 13.6 % (9.3-17.3); White Blood Count 10.6 T/CUMM (4-12)
[2020-05-15 05:52] LABS: Calcium 8.2 MG/DL (8.5-10.1); Osmolality,Calculated 273.7 MOS/KG (273-304)
[2020-05-15] MEDS: ACETAMINOPHEN 325 MG TABLET PO PRN (08:48)
[2020-05-15] MEDS: METOPROLOL TARTRATE 100 MG TABLET PO SCH (08:50)
[2020-05-15] MEDS ORDERED: cefTRIAXone 2,000 MG in SYRINGE 1 EACH IV SCH (09:00)
[2020-05-15] MEDS: dilTIAZem Drip 125 MG/125 ML PREMIX IV SCH (10:26)
[2020-05-15 10:57] LABS: INR 2.7; PT Patient Result 27.8 SECS (9.8-11.9)
[2020-05-15] MEDS: WARFARIN 5 MG TABLET PO SCH (16:57)
[2020-05-15] MEDS: METOPROLOL TARTRATE 50 MG TABLET PO SCH (20:42)
[2020-05-15] MEDS: MELATONIN 3 MG TABLET PO PRN (21:21)
[2020-05-16] MEDS: LEVOTHYROXINE 88 MCG TABLET PO SCH (05:15)
[2020-05-16] MEDS: ONDANSETRON 4 MG/2 ML VIAL IV PRN ×3 (05:29→20:37)
[2020-05-16 05:44] LABS: Basophils # 0.1 10*3/uL (0.0-0.2); Basophils % 0.7 % (0.0-0.8); Eosinophils # 0.1 10*3/uL (0.0-0.87); Eosinophils % 0.9 % (0.00-10.9); Hematocrit 36.9 VOL% (35.7-47.0); Hemoglobin 11.9 GM/DL (12.0-16.0); Immature Granulocytes % 2.3 %; Immature Granulocytes Absolute 0.29 #; Lymphocytes # 1.9 10*3/uL (1.4-4.0); Lymphocytes % 15.5 % (21.3-54.2); Mean Corpuscular HGB Conc 32.2 GM/DL (32-36); Mean Corpuscular Volume 88.3 FL (87-102); Mean Platelet Volume 12.9 FL (9.6-12.0); Monocytes % 10.2 % (1.7-12.7); NRBC # 0.03 10*3/uL; Neutrophils % 70.4 % (38.7-73.9); Platelet Count 182 T/CUMM (130-400); Red Blood Count 4.18 MC/CUMM (3.8-5.5); Red Cell Distribution Width 13.8 % (9.3-17.3); White Blood Count 12.4 T/CUMM (4-12)
[2020-05-16 06:04] LABS: Calcium 8.5 MG/DL (8.5-10.1); Osmolality,Calculated 269.8 MOS/KG (273-304)
[2020-05-16] MEDS: SOTALOL 80 MG TABLET PO SCH ×2 (08:16→20:37)
[2020-05-16] MEDS: METOPROLOL TARTRATE 50 MG TABLET PO SCH (08:16)
[2020-05-16] MEDS: dilTIAZem Drip 125 MG/125 ML PREMIX IV SCH (09:27)
[2020-05-16] MEDS: ACETAMINOPHEN 325 MG TABLET PO PRN (14:07)
[2020-05-16] MEDS: METOPROLOL TARTRATE 25 MG TABLET PO SCH (20:37)
[2020-05-16] MEDS: MELATONIN 3 MG TABLET PO PRN (20:45)
[2020-05-17 05:30] LABS: Basophils # 0.1 10*3/uL (0.0-0.2); Basophils % 0.6 % (0.0-0.8); Eosinophils # 0.1 10*3/uL (0.0-0.87); Eosinophils % 0.8 % (0.00-10.9); Hematocrit 38.5 VOL% (35.7-47.0); Hemoglobin 12.2 GM/DL (12.0-16.0); Immature Granulocytes % 1.9 %; Immature Granulocytes Absolute 0.19 #; Lymphocytes # 1.8 10*3/uL (1.4-4.0); Lymphocytes % 17.2 % (21.3-54.2); Mean Corpuscular HGB Conc 31.7 GM/DL (32-36); Mean Corpuscular Volume 90.6 FL (87-102); Mean Platelet Volume 12.7 FL (9.6-12.0); Monocytes % 9.4 % (1.7-12.7); NRBC # 0.03 10*3/uL; Neutrophils % 70.1 % (38.7-73.9); Platelet Count 192 T/CUMM (130-400); Red Blood Count 4.25 MC/CUMM (3.8-5.5); Red Cell Distribution Width 14.1 % (9.3-17.3); White Blood Count 10.2 T/CUMM (4-12)
[2020-05-17] MEDS: ACETAMINOPHEN 325 MG TABLET PO PRN (05:40)
[2020-05-17 05:48] LABS: Calcium 8.6 MG/DL (8.5-10.1); Osmolality,Calculated 267.1 MOS/KG (273-304)
[2020-05-17 06:07] LABS: PT Patient Result 49.7 SECS (9.8-11.9)
[2020-05-17] MEDS: LEVOTHYROXINE 88 MCG TABLET PO SCH (06:15)
[2020-05-17] MEDS: ONDANSETRON 4 MG/2 ML VIAL IV PRN (07:22)
[2020-05-17 08:12] VITALS: BP 158/77
[2020-05-17] MEDS: SOTALOL 80 MG TABLET PO SCH (08:23)
[2020-05-17] MEDS: METOPROLOL TARTRATE 25 MG TABLET PO SCH (08:23)
[2020-05-17] MEDS ORDERED: OXYMETAZOLINE 0.05% NASAL SPRAY 15 ML BOTTLE BOTH NARES PRN (09:57)
[2020-05-17] MEDS: dilTIAZem Drip 125 MG/125 ML PREMIX IV SCH (11:13)
[2020-05-17 11:20] LABS: Hypochromasia 2+; Polychromasia Slight
[2020-05-17 11:21] LABS: Anisocytosis 2+; Macrocytosis Slight; Microcytosis 1+; Platelet Estimate Adequate
== END 2020-05-17 11:39 | disposition home or self-care (01) | DRG 866 ==
LOC: EDUNIT# → EDBD → N.ED 17:49 → SUATTDRO 20:26 → N.EDINP 20:26 → N.2E 22:23 → N.TELES 05-16 15:27
PROVIDERS: ADMIT Internal Medicine; ATTEND Hospitalist

== ENCOUNTER 2020-06-01 08:42 | Observation (INO) ==
[2020-06-01 09:30] LABS: Basophils # 0.1 10*3/uL (0.0-0.2); Basophils % 0.9 % (0.0-0.8); Eosinophils # 0.1 10*3/uL (0.0-0.87); Eosinophils % 0.9 % (0.00-10.9); Hematocrit 43.4 VOL% (35.7-47.0); Hemoglobin 13.8 GM/DL (12.0-16.0); Immature Granulocytes % 0.3 %; Immature Granulocytes Absolute 0.02 #; Lymphocytes # 1.4 10*3/uL (1.4-4.0); Lymphocytes % 19.5 % (21.3-54.2); Mean Corpuscular HGB Conc 31.8 GM/DL (32-36); Mean Platelet Volume 13.3 FL (9.6-12.0); Monocytes % 10.7 % (1.7-12.7); Neutrophils % 67.7 % (38.7-73.9); Platelet Count 127 T/CUMM (130-400); Red Blood Count 4.77 MC/CUMM (3.8-5.5); Red Cell Distribution Width 15.5 % (9.3-17.3); White Blood Count 6.9 T/CUMM (4-12)
[2020-06-01 09:33] LABS: INR 2.2; PT Patient Result 22.3 SECS (9.8-11.9)
[2020-06-01 09:50] LABS: Anisocytosis Slight; Platelet Estimate Adequate
[2020-06-01 09:52] LABS: Bilirubin,Total 1.5 MG/DL (0.2-1.0); Calcium 8.7 MG/DL (8.5-10.1); Osmolality,Calculated 272.7 MOS/KG (273-304); Total Protein 7.4 G/DL (6.4-8.3)
[2020-06-01] MEDS ORDERED: MAGNESIUM SULF RIDER 4 GM in PREMIX 1 EACH IV PRN (10:04)
[2020-06-01] MEDS ORDERED: MAGNESIUM SULF RIDER 2 GM in PREMIX 1 EACH IV PRN (10:04)
[2020-06-01] MEDS ORDERED: MELATONIN 3 MG TABLET PO PRN (10:06)
[2020-06-01] MEDS ORDERED: BECLOMETHASONE 80 MCG/PUFF INHALER 8.7 GM INH PRN (10:06)
[2020-06-01] MEDS ORDERED: ACETAMINOPHEN 500 MG TABLET PO PRN (10:06)
[2020-06-01] MEDS ORDERED: ONDANSETRON 4 MG TABLET PO PRN (10:06)
[2020-06-01] MEDS ORDERED: ALPRAZolam 0.25 MG TABLET PO PRN (15:05)
[2020-06-01] MEDS ORDERED: WARFARIN 5 MG TABLET PO SCH (18:00)
[2020-06-01] MEDS ORDERED: LOSARTAN 50 MG TABLET PO SCH (21:00)
[2020-06-01] MEDS ORDERED: METOPROLOL TARTRATE 100 MG TABLET PO SCH (21:00)
[2020-06-01] MEDS ORDERED: SOTALOL 80 MG TABLET PO SCH (21:00)
[2020-06-01] MEDS ORDERED: METOPROLOL TARTRATE 25 MG TABLET PO SCH (21:00)
[2020-06-02 05:40] LABS: Basophils # 0.1 10*3/uL (0.0-0.2); Basophils % 1.2 % (0.0-0.8); Eosinophils # 0.1 10*3/uL (0.0-0.87); Eosinophils % 0.9 % (0.00-10.9); Hematocrit 41.6 VOL% (35.7-47.0); Immature Granulocytes % 0.4 %; Immature Granulocytes Absolute 0.03 #; Lymphocytes # 1.6 10*3/uL (1.4-4.0); Mean Corpuscular HGB Conc 31.3 GM/DL (32-36); Mean Corpuscular Volume 93.3 FL (87-102); Mean Platelet Volume 13.4 FL (9.6-12.0); Monocytes % 14.6 % (1.7-12.7); Neutrophils % 59.9 % (38.7-73.9); Platelet Count 115 T/CUMM (130-400); Red Blood Count 4.46 MC/CUMM (3.8-5.5); Red Cell Distribution Width 15.7 % (9.3-17.3); White Blood Count 6.8 T/CUMM (4-12)
[2020-06-02 05:57] LABS: Albumin 2.6 G/DL (3.4-5.0); Bilirubin,Total 1.1 MG/DL (0.2-1.0); Calcium 9.1 MG/DL (8.5-10.1); Osmolality,Calculated 276.5 MOS/KG (273-304); Total Protein 7.2 G/DL (6.4-8.3)
[2020-06-02 06:23] LABS: Hypochromasia 1+; Platelet Estimate Decreased
[2020-06-02 06:24] LABS: Microcytosis Slight
[2020-06-02] MEDS ORDERED: LEVOTHYROXINE 88 MCG TABLET PO SCH (07:00)
[2020-06-02] MEDS ORDERED: hydroCHLOROthiazide 12.5 MG CAPSULE PO SCH (09:00)
[2020-06-02] MEDS ORDERED: CHOLECALCIFEROL 1,000 UNIT TABLET PO SCH (09:00)
[2020-06-02] MEDS ORDERED: MAGNESIUM OXIDE 400 MG TABLET PO SCH (09:00)
[2020-06-02] MEDS ORDERED: METOPROLOL TARTRATE 50 MG TABLET PO SCH (10:00)
[2020-06-02 13:51] VITALS: BP 138/70
[2020-06-02] MEDS ORDERED: WARFARIN 2.5 MG TABLET PO SCH (18:00)
== END 2020-06-02 15:15 | disposition home or self-care (01) ==
LOC: EDBD → EDUNIT# → N.EDINP 08:42 → N.ED 08:42 → N.TELEN 14:00
PROVIDERS: ADMIT Internal Medicine Cardiovascular Disease; ATTEND Internal Medicine Cardiovascular Disease

== ENCOUNTER 2020-06-03 13:04 | Observation (INO) ==
[2020-06-03] MEDS ORDERED: DILTIAZEM 50 MG/10 ML VIAL IV STA (13:38)
[2020-06-03] MEDS: dilTIAZem Drip 125 MG/125 ML PREMIX IV SCH ×2 (13:53→22:42)
[2020-06-03] MEDS ORDERED: ACETAMINOPHEN 325 MG TABLET PO PRN (14:28)
[2020-06-03] MEDS ORDERED: LACTULOSE 20 GM/30 ML UDCUP PO PRN (14:28)
[2020-06-03] MEDS ORDERED: ALUMINUM/MAGNES/SIMETH MAX STR 30 ML UDCUP PO PRN (14:28)
[2020-06-03] MEDS ORDERED: BISACODYL 5 MG TABLET PO PRN (14:28)
[2020-06-03] MEDS ORDERED: SIMETHICONE CHEW 125 MG TABLET PO PRN (14:28)
[2020-06-03] MEDS ORDERED: ONDANSETRON 4 MG/2 ML VIAL IV PRN (14:28)
[2020-06-03] MEDS ORDERED: MAGNESIUM SULF RIDER 2 GM in PREMIX 1 EACH IV PRN (14:28)
[2020-06-03] MEDS ORDERED: CALCIUM CARBONATE CHEW 500 MG TABLET PO PRN (14:28)
[2020-06-03] MEDS ORDERED: hydrALAZINE 20 MG/1 ML VIAL IV PRN (14:28)
[2020-06-03] MEDS ORDERED: diphenhydrAMINE CAP 25 MG CAPSULE PO PRN (14:28)
[2020-06-03] MEDS ORDERED: ZALEPLON 5 MG CAPSULE PO PRN (14:28)
[2020-06-03] MEDS ORDERED: MAGNESIUM SULF RIDER 4 GM in PREMIX 1 EACH IV PRN (14:28)
[2020-06-03] MEDS ORDERED: guaiFENesin/DM ER 600-30 MG TABLET PO PRN (14:28)
[2020-06-03 14:30] LABS: Basophils # 0.1 10*3/uL (0.0-0.2); Basophils % 0.7 % (0.0-0.8); Eosinophils % 0.2 % (0.00-10.9); Hematocrit 44.7 VOL% (35.7-47.0); Hemoglobin 14.3 GM/DL (12.0-16.0); Immature Granulocytes % 0.2 %; Immature Granulocytes Absolute 0.02 #; Lymphocytes # 1.1 10*3/uL (1.4-4.0); Lymphocytes % 12.2 % (21.3-54.2); Mean Corpuscular Volume 90.5 FL (87-102); Mean Platelet Volume 12.9 FL (9.6-12.0); Monocytes % 7.4 % (1.7-12.7); Neutrophils % 79.3 % (38.7-73.9); Platelet Count 131 T/CUMM (130-400); Red Blood Count 4.94 MC/CUMM (3.8-5.5); Red Cell Distribution Width 15.6 % (9.3-17.3)
[2020-06-03] MEDS ORDERED: MECLIZINE 25 MG TABLET PO PRN ×2 (14:35→17:39)
[2020-06-03] MEDS ORDERED: BECLOMETHASONE 80 MCG/PUFF INHALER 8.7 GM INH PRN (14:35)
[2020-06-03] MEDS ORDERED: MELATONIN 3 MG TABLET PO PRN (14:35)
[2020-06-03] MEDS ORDERED: ALPRAZolam 0.25 MG TABLET PO PRN (14:35)
[2020-06-03] MEDS ORDERED: tiZANidine 4 MG TABLET PO PRN ×2 (14:35→17:42)
[2020-06-03] MEDS ORDERED: OXYMETAZOLINE 0.05% NASAL SPRAY 15 ML BOTTLE BOTH NARES PRN (14:35)
[2020-06-03 14:39] LABS: PT Patient Result 20.9 SECS (9.8-11.9); Partial Thromboplastin Time 37.3 SECS (23.9-33.8)
[2020-06-03] MEDS ORDERED: METOPROLOL TARTRATE 5 MG/5 ML VIAL IV STA (14:49)
[2020-06-03 14:54] LABS: Bilirubin,Total 0.4 MG/DL (0.2-1.0); Calcium 8.7 MG/DL (8.5-10.1); Osmolality,Calculated 274.7 MOS/KG (273-304); Thyroid Stimulating Hormone 0.348 uIU/ml (0.358-3.74); Total Protein 7.5 G/DL (6.4-8.3)
[2020-06-03 14:55] LABS: Lymphocytes 17 % (20-55); Platelet Estimate Adequate; Segmented Neutrophils 79 % (50-85); Total Cells Counted 100
[2020-06-03 16:34] LABS: Troponin I < 0.015 NG/ML (0.00-0.045)
[2020-06-03] MEDS ORDERED: METOPROLOL TARTRATE 5 MG/5 ML VIAL IV ONE ×3 (18:31→18:34)
[2020-06-03] MEDS ORDERED: METOPROLOL TARTRATE 50 MG TABLET ONE (18:40)
[2020-06-03] MEDS ORDERED: METOPROLOL TARTRATE 100 MG TABLET PO ONE (18:43)
[2020-06-03 20:19] LABS: Troponin I < 0.015 NG/ML (0.00-0.045)
[2020-06-03 21:22] LABS: Troponin I < 0.015 NG/ML (0.00-0.045)
[2020-06-03] MEDS: WARFARIN 2.5 MG TABLET PO SCH (21:28)
[2020-06-03] MEDS: LOSARTAN 50 MG TABLET PO SCH (21:28)
[2020-06-03] MEDS: hydroCHLOROthiazide 12.5 MG CAPSULE PO SCH (21:29)
[2020-06-03] MEDS: METOPROLOL TARTRATE 100 MG TABLET PO SCH (21:29)
[2020-06-04 05:39] LABS: Basophils # 0.1 10*3/uL (0.0-0.2); Eosinophils # 0.1 10*3/uL (0.0-0.87); Eosinophils % 1.3 % (0.00-10.9); Hematocrit 40.8 VOL% (35.7-47.0); Immature Granulocytes % 0.2 %; Immature Granulocytes Absolute 0.01 #; Lymphocytes # 1.8 10*3/uL (1.4-4.0); Lymphocytes % 29.1 % (21.3-54.2); Mean Corpuscular HGB Conc 31.9 GM/DL (32-36); Mean Corpuscular Volume 91.3 FL (87-102); Mean Platelet Volume 13.6 FL (9.6-12.0); Monocytes % 14.5 % (1.7-12.7); Neutrophils % 53.9 % (38.7-73.9); Platelet Count 109 T/CUMM (130-400); Red Blood Count 4.47 MC/CUMM (3.8-5.5); Red Cell Distribution Width 15.8 % (9.3-17.3); White Blood Count 6.2 T/CUMM (4-12)
[2020-06-04 05:46] LABS: INR 1.8; PT Patient Result 19.2 SECS (9.8-11.9)
[2020-06-04 06:11] LABS: Blood Urea Nitrogen 8 MG/DL (7-18); Calcium 8.8 MG/DL (8.5-10.1); Estimated Glom Filtration Rate 101 ML/MIN; Glucose 85 MG/DL (74-106); HDL Cholesterol 40 MG/DL (40-60); Osmolality,Calculated 275.4 MOS/KG (273-304); Risk Ratio 4.98; Triglycerides 234 MG/DL (2-150); Troponin I < 0.015 NG/ML (0.00-0.045); VLDL CHOLESTEROL 46.8 MG/DL
[2020-06-04 06:13] LABS: Hypochromasia 1+; Platelet Estimate Decreased
[2020-06-04 06:14] LABS: Microcytosis Slight
[2020-06-04] MEDS: LEVOTHYROXINE 50 MCG TABLET PO SCH ×2 (06:44→08:35)
[2020-06-04] MEDS: CYANOCOBALAMIN 500 MCG TABLET PO SCH (08:34)
[2020-06-04] MEDS: ASCORBIC ACID 500 MG TABLET PO SCH (08:34)
[2020-06-04] MEDS: MAGNESIUM OXIDE 400 MG TABLET PO SCH (08:35)
[2020-06-04] MEDS: POTASSIUM CHLORIDE 20 MEQ TABLET PO PRN ×2 (08:35→14:53)
[2020-06-04] MEDS: CHOLECALCIFEROL 1,000 UNIT TABLET PO SCH (08:40)
[2020-06-04] MEDS ORDERED: METOPROLOL TARTRATE 50 MG TABLET PO SCH (09:00)
[2020-06-04] MEDS: dilTIAZem Drip 125 MG/125 ML PREMIX IV SCH (13:45)
[2020-06-04] MEDS: WARFARIN 2.5 MG TABLET PO SCH (17:09)
[2020-06-04] MEDS ORDERED: WARFARIN 5 MG TABLET PO ONE (18:00)
[2020-06-04] MEDS: METOPROLOL TARTRATE 100 MG TABLET PO SCH (21:27)
[2020-06-04] MEDS: LOSARTAN 50 MG TABLET PO SCH (21:27)
[2020-06-04] MEDS: hydroCHLOROthiazide 12.5 MG CAPSULE PO SCH (21:29)
[2020-06-05 04:08] LABS: Basophils # 0.1 10*3/uL (0.0-0.2); Basophils % 0.9 % (0.0-0.8); Eosinophils # 0.2 10*3/uL (0.0-0.87); Eosinophils % 2.3 % (0.00-10.9); Immature Granulocytes % 0.2 %; Immature Granulocytes Absolute 0.01 #; Lymphocytes # 1.9 10*3/uL (1.4-4.0); Lymphocytes % 29.4 % (21.3-54.2); Mean Corpuscular HGB Conc 31.7 GM/DL (32-36); Mean Corpuscular Volume 90.7 FL (87-102); Mean Platelet Volume 13.8 FL (9.6-12.0); Monocytes % 14.5 % (1.7-12.7); Neutrophils % 52.7 % (38.7-73.9); Platelet Count 104 T/CUMM (130-400); Red Blood Count 4.52 MC/CUMM (3.8-5.5); Red Cell Distribution Width 15.8 % (9.3-17.3); White Blood Count 6.4 T/CUMM (4-12)
[2020-06-05 04:48] LABS: Platelet Estimate Decreased
[2020-06-05 04:49] LABS: Microcytosis Slight
[2020-06-05 04:54] LABS: Calcium 8.8 MG/DL (8.5-10.1); Osmolality,Calculated 274.7 MOS/KG (273-304)
[2020-06-05] MEDS: LEVOTHYROXINE 50 MCG TABLET PO SCH (05:56)
[2020-06-05 07:40] LABS: PT Patient Result 20.3 SECS (9.8-11.9)
[2020-06-05] MEDS: CYANOCOBALAMIN 500 MCG TABLET PO SCH (08:23)
[2020-06-05] MEDS: ASCORBIC ACID 500 MG TABLET PO SCH (08:23)
[2020-06-05] MEDS: MAGNESIUM OXIDE 400 MG TABLET PO SCH (08:23)
[2020-06-05] MEDS: CHOLECALCIFEROL 1,000 UNIT TABLET PO SCH (08:23)
[2020-06-05] MEDS ORDERED: METOPROLOL TARTRATE 100 MG TABLET PO SCH (09:00)
[2020-06-05] MEDS ORDERED: ASCORBIC ACID 500 MG TABLET PO SCH (09:00)
[2020-06-05] MEDS ORDERED: SPIRONOLACTONE 25 MG TABLET PO SCH (09:00)
[2020-06-05 09:58] VITALS: BP 155/82
[2020-06-08] MEDS ORDERED: WARFARIN 5 MG TABLET PO SCH (18:00)
== END 2020-06-05 11:08 | disposition home or self-care (01) ==
LOC: EDUNIT# → EDBD → N.TELES 13:04 → N.ED 13:04 → N.TELEN 19:12
PROVIDERS: ADMIT Internal Medicine Cardiovascular Disease; ATTEND Internal Medicine Cardiovascular Disease

== ENCOUNTER 2020-09-18 19:38 | Inpatient (IN) ==
[2020-09-18] MEDS ORDERED: IBUPROFEN 600 MG TABLET PO STA (19:54)
[2020-09-18 20:10] LABS: Basophils % 0.3 % (0.0-0.8); Hematocrit 36.8 VOL% (35.7-47.0); Hemoglobin 11.8 GM/DL (12.0-16.0); Immature Granulocytes % 1.8 %; Immature Granulocytes Absolute 0.19 #; Lymphocytes # 0.9 10*3/uL (1.4-4.0); Lymphocytes % 8.6 % (21.3-54.2); Mean Corpuscular HGB Conc 32.1 GM/DL (32-36); Mean Corpuscular Volume 85.8 FL (87-102); Monocytes % 3.7 % (1.7-12.7); NRBC # 0.03 10*3/uL; Neutrophils % 85.6 % (38.7-73.9); Platelet Count 53 T/CUMM (130-400); Red Blood Count 4.29 MC/CUMM (3.8-5.5); Red Cell Distribution Width 20.9 % (9.3-17.3); White Blood Count 10.4 T/CUMM (4-12)
[2020-09-18 20:22] LABS: Bilirubin,Urine Negative (Negative); Blood, Urine Large mg/dL (Negative); Glucose,Urine (UA) Negative (Negative); Hyaline Casts,Urine 5 /LPF (0-3); Ketones,Urine Negative (Negative); Mucus,Urine Occasional /LPF (Occasional); Nitrite,Urine Negative (Negative); Protein,Urine 100 MG/DL; RBC,Urine 19 /HPF (0-4); Squamous Epithelial Cell,Urine Occasional /HPF (0-10); Urine Appearance Slightly Hazy (Clear); Urine Color Amber (Yellow); Urine Specific Gravity 1.017 (1.001-1.035); Urine Urobilinogen < 2.0 EU/DL (0.2-1.0); WBC,Urine 2 /HPF (0-6)
[2020-09-18 20:30] LABS: Band Neutrophils 3 % (0-10); Lymphocytes 5 % (20-55); Platelet Estimate Decreased; Segmented Neutrophils 89 % (50-85); Total Cells Counted 100
[2020-09-18 20:36] LABS: Alanine Aminotransferase < 9 U/L (13-56); Albumin 2.5 G/DL (3.4-5.0); Alkaline Phosphatase 70 U/L (45-117); Aspartate Amino Transferase 28 U/L (0-37); Blood Urea Nitrogen 19 MG/DL (7-18); Calcium 8.6 MG/DL (8.5-10.1); Estimated Glom Filtration Rate 56 ML/MIN; Glucose 117 MG/DL (74-106); Osmolality,Calculated 259.1 MOS/KG (273-304); Total Protein 7.4 G/DL (6.4-8.3)
[2020-09-18] MEDS ORDERED: LEVALBUTEROL 1.25 MG/3 ML NEB RESP TX STA (20:36)
[2020-09-18] MEDS ORDERED: cefTRIAXone 1,000 MG in SODIUM CHLORIDE 0.9% 100 ML IV STA (20:42)
[2020-09-19] MEDS ORDERED: ZALEPLON 5 MG CAPSULE PO PRN (00:05)
[2020-09-19] MEDS ORDERED: DEXTROSE 50% 25 GM/50 ML VIAL IV PRN (00:05)
[2020-09-19] MEDS ORDERED: GLUCAGON 1 MG VIAL IM PRN (00:05)
[2020-09-19] MEDS ORDERED: SODIUM CHLORIDE 0.9% 1,000 ML IV SCH (00:30)
[2020-09-19 01:11] LABS: PT Patient Result 20.9 SECS (9.8-11.9)
[2020-09-19] MEDS: AZITHROMYCIN INJ 500 MG in SODIUM CHLORIDE 0.9% 250 ML IV SCH (01:17)
[2020-09-19] MEDS: ACETAMINOPHEN 325 MG TABLET PO PRN ×2 (02:38→21:06)
[2020-09-19 06:16] LABS: Basophils % 0.4 % (0.0-0.8); Hematocrit 32.5 VOL% (35.7-47.0); Hemoglobin 10.4 GM/DL (12.0-16.0); Immature Granulocytes % 1.9 %; Immature Granulocytes Absolute 0.16 #; Lymphocytes # 0.8 10*3/uL (1.4-4.0); Mean Corpuscular Volume 87.6 FL (87-102); Monocytes % 5.1 % (1.7-12.7); Neutrophils % 82.6 % (38.7-73.9); Platelet Count 43 T/CUMM (130-400); Red Blood Count 3.71 MC/CUMM (3.8-5.5); Red Cell Distribution Width 20.5 % (9.3-17.3); White Blood Count 8.3 T/CUMM (4-12)
[2020-09-19 06:22] LABS: INR 1.8; PT Patient Result 18.8 SECS (9.8-11.9)
[2020-09-19 06:35] LABS: Alanine Aminotransferase < 6 U/L (13-56); Alkaline Phosphatase 60 U/L (45-117); Aspartate Amino Transferase 20 U/L (0-37); Blood Urea Nitrogen 19 MG/DL (7-18); Calcium 8.4 MG/DL (8.5-10.1); Estimated Glom Filtration Rate 67 ML/MIN; Glucose 121 MG/DL (74-106); Osmolality,Calculated 270.2 MOS/KG (273-304); Total Protein 6.5 G/DL (6.4-8.3)
[2020-09-19 07:04] LABS: Hypochromasia 1+; Microcytosis 1+; Platelet Estimate Decreased
[2020-09-19 15:37] LABS: Folate 6.8 NG/ML (5.4-24.0); Vitamin B12 > 2000 PG/ML (211-911)
[2020-09-19] MEDS: ONDANSETRON 4 MG/2 ML VIAL IV PRN ×2 (16:22→21:07)
[2020-09-19] MEDS ORDERED: LEVALBUTEROL 1.25 MG/3 ML NEB RESP TX ONE (20:18)
[2020-09-19] MEDS: METOPROLOL TARTRATE 100 MG TABLET PO SCH (20:53)
[2020-09-19] MEDS: cefTRIAXone 1,000 MG in SYRINGE 1 EACH IV SCH (20:53)
[2020-09-19] MEDS: LOSARTAN 50 MG TABLET PO SCH (20:53)
[2020-09-20] MEDS ORDERED: LEVALBUTEROL 1.25 MG/3 ML NEB RESP TX ONE (00:16)
[2020-09-20] MEDS: AZITHROMYCIN INJ 500 MG in SODIUM CHLORIDE 0.9% 250 ML IV SCH (00:30)
[2020-09-20] MEDS: ONDANSETRON 4 MG/2 ML VIAL IV PRN ×2 (03:56→08:51)
[2020-09-20 05:49] LABS: Basophils % 0.4 % (0.0-0.8); Eosinophils % 0.3 % (0.00-10.9); Hematocrit 30.8 VOL% (35.7-47.0); Hemoglobin 9.5 GM/DL (12.0-16.0); Immature Granulocytes % 2.3 %; Immature Granulocytes Absolute 0.16 #; Lymphocytes # 0.9 10*3/uL (1.4-4.0); Lymphocytes % 12.9 % (21.3-54.2); Mean Corpuscular HGB Conc 30.8 GM/DL (32-36); Monocytes % 4.9 % (1.7-12.7); Neutrophils % 79.2 % (38.7-73.9); Platelet Count 45 T/CUMM (130-400); Red Cell Distribution Width 20.8 % (9.3-17.3); White Blood Count 6.9 T/CUMM (4-12)
[2020-09-20 06:05] LABS: Osmolality,Calculated 264.5 MOS/KG (273-304)
[2020-09-20] MEDS: LEVOTHYROXINE 88 MCG TABLET PO SCH (06:09)
[2020-09-20 06:15] LABS: Anisocytosis 3+; Band Neutrophils 29 % (0-10); Eosinophils 2 % (0-10); Lymphocytes 9 % (20-55); Macrocytosis Slight; Metamyelocytes 1 %; Platelet Estimate Decreased; Segmented Neutrophils 57 % (50-85); Total Cells Counted 100
[2020-09-20 06:16] LABS: Polychromasia Slight
[2020-09-20] MEDS: LEVALBUTEROL 1.25 MG/3 ML NEB RESP TX PRN ×2 (07:31→14:09)
[2020-09-20] MEDS: SPIRONOLACTONE 25 MG TABLET PO SCH (08:51)
[2020-09-20] MEDS: METOPROLOL TARTRATE 100 MG TABLET PO SCH ×2 (08:52→20:00)
[2020-09-20] MEDS: FAMOTIDINE 20 MG TABLET PO SCH ×2 (12:49→21:23)
[2020-09-20] MEDS: DEXAMETHASONE 4 MG TABLET PO SCH (12:50)
[2020-09-20] MEDS ORDERED: BECLOMETHASONE DIPROPIONATE BOTH NARES PRN (13:47)
[2020-09-20] MEDS: ENOXAPARIN 40 MG/0.4 ML SYRINGE SUBCUT SCH (16:34)
[2020-09-20] MEDS ORDERED: FUROSEMIDE 40 MG/4 ML VIAL IV ONE (19:32)
[2020-09-20] MEDS ORDERED: LEVALBUTEROL 1.25 MG/3 ML NEB RESP TX PRN (19:53)
[2020-09-20] MEDS: cefTRIAXone 1,000 MG in SYRINGE 1 EACH IV SCH (21:23)
[2020-09-20] MEDS: LOSARTAN 50 MG TABLET PO SCH (21:23)
[2020-09-21 05:29] LABS: Basophils % 0.4 % (0.0-0.8); Eosinophils % 0.2 % (0.00-10.9); Hematocrit 32.9 VOL% (35.7-47.0); Hemoglobin 10.2 GM/DL (12.0-16.0); Immature Granulocytes % 2.4 %; Lymphocytes # 1.1 10*3/uL (1.4-4.0); Lymphocytes % 12.6 % (21.3-54.2); Mean Corpuscular Volume 89.9 FL (87-102); Monocytes % 5.2 % (1.7-12.7); NRBC # 0.02 10*3/uL; Neutrophils % 79.2 % (38.7-73.9); Platelet Count 52 T/CUMM (130-400); Red Blood Count 3.66 MC/CUMM (3.8-5.5); Red Cell Distribution Width 20.7 % (9.3-17.3); White Blood Count 8.4 T/CUMM (4-12)
[2020-09-21 05:53] LABS: Calcium 8.6 MG/DL (8.5-10.1); Osmolality,Calculated 264.7 MOS/KG (273-304)
[2020-09-21 06:21] LABS: Anisocytosis 1+; Macrocytosis Slight; Platelet Estimate Decreased
[2020-09-21] MEDS: LEVOTHYROXINE 88 MCG TABLET PO SCH (08:31)
[2020-09-21] MEDS: METOPROLOL TARTRATE 100 MG TABLET PO SCH ×2 (09:48→20:46)
[2020-09-21] MEDS: MAGNESIUM GLUCONATE 500 MG TABLET PO SCH (09:50)
[2020-09-21] MEDS: SPIRONOLACTONE 25 MG TABLET PO SCH (09:51)
[2020-09-21] MEDS: ASCORBIC ACID 500 MG TABLET PO SCH (09:51)
[2020-09-21] MEDS: CYANOCOBALAMIN 500 MCG TABLET PO SCH (09:51)
[2020-09-21] MEDS: FAMOTIDINE 20 MG TABLET PO SCH ×2 (09:51→20:46)
[2020-09-21] MEDS: AZITHROMYCIN 250 MG TABLET PO SCH (09:51)
[2020-09-21] MEDS: DEXAMETHASONE 4 MG TABLET PO SCH (13:16)
[2020-09-21] MEDS: VANCOMYCIN INJ 1,250 MG in SODIUM CHLORIDE 0.9% 250 ML IV SCH (13:27)
[2020-09-21] MEDS: LEVALBUTEROL 1.25 MG/3 ML NEB RESP TX SCH ×2 (13:34→19:44)
[2020-09-21] MEDS: ALPRAZolam 0.25 MG TABLET PO PRN (15:20)
[2020-09-21] MEDS: cefTRIAXone 1,000 MG in SYRINGE 1 EACH IV SCH (20:46)
[2020-09-21] MEDS: LOSARTAN 50 MG TABLET PO SCH (20:46)
[2020-09-22] MEDS: LEVALBUTEROL 1.25 MG/3 ML NEB RESP TX SCH ×4 (00:12→19:07)
[2020-09-22] MEDS: LEVOTHYROXINE 88 MCG TABLET PO SCH (06:18)
[2020-09-22 07:15] LABS: Basophils % 0.2 % (0.0-0.8); Hematocrit 30.6 VOL% (35.7-47.0); Hemoglobin 9.6 GM/DL (12.0-16.0); Immature Granulocytes % 3.2 %; Immature Granulocytes Absolute 0.15 #; Lymphocytes # 0.6 10*3/uL (1.4-4.0); Lymphocytes % 13.4 % (21.3-54.2); Mean Corpuscular HGB Conc 31.4 GM/DL (32-36); Mean Corpuscular Volume 89.7 FL (87-102); Monocytes % 4.3 % (1.7-12.7); Neutrophils % 78.9 % (38.7-73.9); Red Blood Count 3.41 MC/CUMM (3.8-5.5); White Blood Count 4.6 T/CUMM (4-12)
[2020-09-22 07:16] LABS: Platelet Count 55 T/CUMM (130-400)
[2020-09-22 07:22] LABS: Calcium 9.1 MG/DL (8.5-10.1); Osmolality,Calculated 272.4 MOS/KG (273-304)
[2020-09-22 07:54] LABS: Hypochromasia 1+; Microcytosis 1+; Ovalocytes Slight
[2020-09-22 07:55] LABS: Platelet Estimate Decreased
[2020-09-22] MEDS: ONDANSETRON 4 MG/2 ML VIAL IV PRN (09:16)
[2020-09-22] MEDS: ASCORBIC ACID 500 MG TABLET PO SCH (09:19)
[2020-09-22] MEDS: AZITHROMYCIN 250 MG TABLET PO SCH (09:19)
[2020-09-22] MEDS: SPIRONOLACTONE 25 MG TABLET PO SCH (09:20)
[2020-09-22] MEDS: FAMOTIDINE 20 MG TABLET PO SCH ×2 (09:20→21:55)
[2020-09-22] MEDS: DEXAMETHASONE 4 MG TABLET PO SCH (09:20)
[2020-09-22] MEDS: MAGNESIUM GLUCONATE 500 MG TABLET PO SCH (09:20)
[2020-09-22] MEDS: METOPROLOL TARTRATE 100 MG TABLET PO SCH ×2 (09:20→22:05)
[2020-09-22] MEDS: CYANOCOBALAMIN 500 MCG TABLET PO SCH (09:20)
[2020-09-22] MEDS: APIXABAN 5 MG TABLET PO SCH ×2 (09:25→21:56)
[2020-09-22] MEDS: ALPRAZolam 0.25 MG TABLET PO PRN ×2 (09:25→13:26)
[2020-09-22 10:14] LABS: INR 1.2
[2020-09-22] MEDS: VANCOMYCIN INJ 1,250 MG in SODIUM CHLORIDE 0.9% 250 ML IV SCH (12:46)
[2020-09-22] MEDS ORDERED: FUROSEMIDE 40 MG/4 ML VIAL IV ONE (13:19)
[2020-09-22] MEDS: FUROSEMIDE 40 MG/4 ML VIAL IV SCH (16:34)
[2020-09-22] MEDS: cefTRIAXone 1,000 MG in SYRINGE 1 EACH IV SCH (21:57)
[2020-09-22] MEDS: LOSARTAN 50 MG TABLET PO SCH (22:05)
[2020-09-23] MEDS: LEVALBUTEROL 1.25 MG/3 ML NEB RESP TX SCH ×4 (01:16→18:42)
[2020-09-23] MEDS: ALPRAZolam 0.25 MG TABLET PO PRN ×4 (03:46→22:22)
[2020-09-23] MEDS: LEVOTHYROXINE 88 MCG TABLET PO SCH (06:07)
[2020-09-23 06:40] LABS: Basophils % 0.1 % (0.0-0.8); Hematocrit 30.1 VOL% (35.7-47.0); Hemoglobin 9.6 GM/DL (12.0-16.0); Immature Granulocytes % 2.1 %; Lymphocytes # 0.6 10*3/uL (1.4-4.0); Lymphocytes % 6.1 % (21.3-54.2); Mean Corpuscular HGB Conc 31.9 GM/DL (32-36); Mean Corpuscular Volume 88.8 FL (87-102); Monocytes % 5.8 % (1.7-12.7); Neutrophils % 85.9 % (38.7-73.9); Platelet Count 73 T/CUMM (130-400); Red Blood Count 3.39 MC/CUMM (3.8-5.5); Red Cell Distribution Width 21.3 % (9.3-17.3); White Blood Count 9.5 T/CUMM (4-12)
[2020-09-23 06:54] LABS: Calcium 9.6 MG/DL (8.5-10.1); Osmolality,Calculated 274.4 MOS/KG (273-304)
[2020-09-23 07:04] LABS: Band Neutrophils 10 % (0-10); Platelet Estimate Decreased; Segmented Neutrophils 87 % (50-85); Total Cells Counted 100
[2020-09-23 07:05] LABS: Anisocytosis 3+
[2020-09-23] MEDS: ONDANSETRON 4 MG/2 ML VIAL IV PRN (07:56)
[2020-09-23] MEDS: METOPROLOL TARTRATE 100 MG TABLET PO SCH (09:26)
[2020-09-23] MEDS: FUROSEMIDE 40 MG/4 ML VIAL IV SCH ×2 (09:26→16:23)
[2020-09-23] MEDS: AZITHROMYCIN 250 MG TABLET PO SCH (09:26)
[2020-09-23] MEDS: ASCORBIC ACID 500 MG TABLET PO SCH ×2 (09:27→22:14)
[2020-09-23] MEDS: CYANOCOBALAMIN 500 MCG TABLET PO SCH (09:27)
[2020-09-23] MEDS: APIXABAN 5 MG TABLET PO SCH ×2 (09:27→22:15)
[2020-09-23] MEDS: MAGNESIUM GLUCONATE 500 MG TABLET PO SCH (09:28)
[2020-09-23] MEDS: DEXAMETHASONE 4 MG TABLET PO SCH (09:28)
[2020-09-23] MEDS: FAMOTIDINE 20 MG TABLET PO SCH ×2 (09:28→22:13)
[2020-09-23] MEDS: SPIRONOLACTONE 25 MG TABLET PO SCH (09:28)
[2020-09-23] MEDS ORDERED: METOPROLOL TARTRATE 5 MG/5 ML VIAL IV ONE (10:55)
[2020-09-23] MEDS ORDERED: AMIODARONE 450 MG/9 ML VIAL IV ONE (11:00)
[2020-09-23] MEDS ORDERED: AMIODARONE INJ 450 MG in DEXTROSE 5% 241 ML IV SCH (11:00)
[2020-09-23] MEDS: VANCOMYCIN INJ 1,250 MG in SODIUM CHLORIDE 0.9% 250 ML IV SCH (12:53)
[2020-09-23] MEDS ORDERED: DIGOXIN 0.5 MG/2 ML AMP IV ONE (16:06)
[2020-09-23] MEDS ORDERED: DIGOXIN 0.5 MG/2 ML AMP ONE (16:10)
[2020-09-23] MEDS: AMIODARONE INJ 450 MG in DEXTROSE 5% 241 ML IV SCH (17:02)
[2020-09-23] MEDS: cefTRIAXone 1,000 MG in SYRINGE 1 EACH IV SCH (22:13)
[2020-09-23] MEDS: METOPROLOL TARTRATE 50 MG TABLET PO SCH (22:15)
[2020-09-23] MEDS: LOSARTAN 50 MG TABLET PO SCH (23:00)
[2020-09-24] MEDS: LEVALBUTEROL 1.25 MG/3 ML NEB RESP TX SCH ×4 (01:59→19:35)
[2020-09-24] MEDS: ONDANSETRON 4 MG/2 ML VIAL IV PRN ×2 (02:33→21:00)
[2020-09-24] MEDS: LEVOTHYROXINE 88 MCG TABLET PO SCH (06:18)
[2020-09-24] MEDS: ALPRAZolam 0.25 MG TABLET PO PRN ×2 (10:17→16:05)
[2020-09-24] MEDS: ASCORBIC ACID 500 MG TABLET PO SCH ×2 (10:21→21:05)
[2020-09-24] MEDS: SPIRONOLACTONE 25 MG TABLET PO SCH (10:21)
[2020-09-24] MEDS: FAMOTIDINE 20 MG TABLET PO SCH ×2 (10:21→21:04)
[2020-09-24] MEDS: METOPROLOL TARTRATE 50 MG TABLET PO SCH (10:21)
[2020-09-24] MEDS: AZITHROMYCIN 250 MG TABLET PO SCH (10:21)
[2020-09-24] MEDS: CYANOCOBALAMIN 500 MCG TABLET PO SCH (10:21)
[2020-09-24] MEDS: APIXABAN 5 MG TABLET PO SCH ×2 (10:21→21:05)
[2020-09-24] MEDS: FUROSEMIDE 40 MG/4 ML VIAL IV SCH ×2 (10:22→16:05)
[2020-09-24] MEDS: MAGNESIUM GLUCONATE 500 MG TABLET PO SCH (10:22)
[2020-09-24] MEDS ORDERED: AMIODARONE 200 MG TABLET PO SCH (10:26)
[2020-09-24 10:51] LABS: Basophils % 0.2 % (0.0-0.8); Hematocrit 35.8 VOL% (35.7-47.0); Immature Granulocytes Absolute 1.02 #; Lymphocytes # 1.1 10*3/uL (1.4-4.0); Lymphocytes % 7.5 % (21.3-54.2); Mean Corpuscular HGB Conc 30.7 GM/DL (32-36); Mean Corpuscular Volume 90.2 FL (87-102); Monocytes % 4.9 % (1.7-12.7); NRBC # 0.09 10*3/uL; Neutrophils % 80.4 % (38.7-73.9); Red Blood Count 3.97 MC/CUMM (3.8-5.5); Red Cell Distribution Width 21.9 % (9.3-17.3); White Blood Count 14.6 T/CUMM (4-12)
[2020-09-24 10:52] LABS: Platelet Count 94 T/CUMM (130-400)
[2020-09-24] MEDS: AMIODARONE INJ 450 MG in DEXTROSE 5% 241 ML IV SCH (11:04)
[2020-09-24 11:10] LABS: Eosinophils 1 % (0-10); Hypochromasia 1+; Lymphocytes 5 % (20-55); Microcytosis 1+; Nucleated Red Blood Cells 3 (0-5); Platelet Estimate Decreased; Segmented Neutrophils 88 % (50-85); Total Cells Counted 100
[2020-09-24 11:43] LABS: Calcium 9.9 MG/DL (8.5-10.1); Osmolality,Calculated 276.7 MOS/KG (273-304)
[2020-09-24] MEDS: VANCOMYCIN INJ 1,250 MG in SODIUM CHLORIDE 0.9% 250 ML IV SCH (13:10)
[2020-09-24] MEDS ORDERED: SODIUM POLYSTYRENE SULFATE 15 GM/60 ML BOTTLE PO STA (16:25)
[2020-09-24] MEDS: cefTRIAXone 1,000 MG in SYRINGE 1 EACH IV SCH (21:02)
[2020-09-24] MEDS: METOPROLOL TARTRATE 100 MG TABLET PO SCH (21:05)
[2020-09-24] MEDS: LOSARTAN 50 MG TABLET PO SCH (21:05)
[2020-09-25] MEDS: LEVALBUTEROL 1.25 MG/3 ML NEB RESP TX SCH ×4 (01:01→20:16)
[2020-09-25 04:24] LABS: Basophils % 0.1 % (0.0-0.8); Hematocrit 30.8 VOL% (35.7-47.0); Hemoglobin 9.6 GM/DL (12.0-16.0); Immature Granulocytes Absolute 0.69 #; Lymphocytes # 0.8 10*3/uL (1.4-4.0); Lymphocytes % 6.7 % (21.3-54.2); Mean Corpuscular HGB Conc 31.2 GM/DL (32-36); Mean Corpuscular Volume 89.5 FL (87-102); Monocytes % 8.4 % (1.7-12.7); NRBC # 0.05 10*3/uL; Neutrophils % 78.8 % (38.7-73.9); Platelet Count 86 T/CUMM (130-400); Red Blood Count 3.44 MC/CUMM (3.8-5.5); Red Cell Distribution Width 21.8 % (9.3-17.3); White Blood Count 11.5 T/CUMM (4-12)
[2020-09-25 04:45] LABS: Calcium 9.6 MG/DL (8.5-10.1); Osmolality,Calculated 281.5 MOS/KG (273-304)
[2020-09-25] MEDS: LEVOTHYROXINE 88 MCG TABLET PO SCH (06:00)
[2020-09-25 08:15] LABS: Band Neutrophils 6 % (0-10); Lymphocytes 6 % (20-55); Metamyelocytes 4 %; Myelocytes 2 %; Platelet Estimate Decreased; Segmented Neutrophils 72 % (50-85); Total Cells Counted 100
[2020-09-25 08:16] LABS: Anisocytosis 2+; Polychromasia Slight
[2020-09-25] MEDS: ASCORBIC ACID 500 MG TABLET PO SCH ×2 (09:22→20:39)
[2020-09-25] MEDS: MAGNESIUM GLUCONATE 500 MG TABLET PO SCH (09:22)
[2020-09-25] MEDS: AZITHROMYCIN 250 MG TABLET PO SCH (09:23)
[2020-09-25] MEDS: SPIRONOLACTONE 25 MG TABLET PO SCH (09:23)
[2020-09-25] MEDS: FAMOTIDINE 20 MG TABLET PO SCH ×2 (09:23→20:40)
[2020-09-25] MEDS: METOPROLOL TARTRATE 100 MG TABLET PO SCH ×2 (09:24→20:40)
[2020-09-25] MEDS: APIXABAN 5 MG TABLET PO SCH ×2 (09:25→20:39)
[2020-09-25] MEDS: predniSONE 20 MG TABLET PO SCH (09:26)
[2020-09-25] MEDS: FUROSEMIDE 40 MG/4 ML VIAL IV SCH ×2 (09:43→16:22)
[2020-09-25] MEDS: VANCOMYCIN INJ 1,250 MG in SODIUM CHLORIDE 0.9% 250 ML IV SCH (09:52)
[2020-09-25] MEDS: CYANOCOBALAMIN 500 MCG TABLET PO SCH (14:01)
[2020-09-25] MEDS: LACTOBACILLUS RHAMNOSUS GG CAPSULE PO SCH ×2 (14:26→20:47)
[2020-09-25] MEDS: LOSARTAN 50 MG TABLET PO SCH (20:39)
[2020-09-25] MEDS: MONTELUKAST 10 MG TABLET PO SCH (20:40)
[2020-09-25] MEDS: ONDANSETRON 4 MG/2 ML VIAL IV PRN (20:41)
[2020-09-25] MEDS: cefTRIAXone 1,000 MG in SYRINGE 1 EACH IV SCH (20:43)
[2020-09-26] MEDS: LEVALBUTEROL 1.25 MG/3 ML NEB RESP TX SCH ×4 (01:30→19:41)
[2020-09-26] MEDS: VANCOMYCIN INJ 1,250 MG in SODIUM CHLORIDE 0.9% 250 ML IV SCH (02:40)
[2020-09-26 05:42] LABS: Basophils % 0.2 % (0.0-0.8); Hematocrit 31.8 VOL% (35.7-47.0); Hemoglobin 9.7 GM/DL (12.0-16.0); Immature Granulocytes % 7.1 %; Immature Granulocytes Absolute 0.87 #; Lymphocytes # 0.9 10*3/uL (1.4-4.0); Lymphocytes % 7.3 % (21.3-54.2); Mean Corpuscular HGB Conc 30.5 GM/DL (32-36); Mean Corpuscular Volume 91.4 FL (87-102); Monocytes % 7.8 % (1.7-12.7); NRBC # 0.04 10*3/uL; Neutrophils % 77.6 % (38.7-73.9); Platelet Count 82 T/CUMM (130-400); Red Blood Count 3.48 MC/CUMM (3.8-5.5); White Blood Count 12.3 T/CUMM (4-12)
[2020-09-26] MEDS: LEVOTHYROXINE 88 MCG TABLET PO SCH (06:00)
[2020-09-26 06:33] LABS: Lymphocytes 6 % (20-55); Platelet Estimate Decreased; Segmented Neutrophils 89 % (50-85); Total Cells Counted 100
[2020-09-26 06:34] LABS: Hypochromasia Slight
[2020-09-26 06:51] LABS: Calcium 9.7 MG/DL (8.5-10.1); Osmolality,Calculated 284.2 MOS/KG (273-304)
[2020-09-26] MEDS: ASCORBIC ACID 500 MG TABLET PO SCH ×2 (10:35→21:07)
[2020-09-26] MEDS: MAGNESIUM GLUCONATE 500 MG TABLET PO SCH (10:35)
[2020-09-26] MEDS: LACTOBACILLUS RHAMNOSUS GG CAPSULE PO SCH ×2 (10:35→21:25)
[2020-09-26] MEDS: APIXABAN 5 MG TABLET PO SCH ×2 (10:35→21:07)
[2020-09-26] MEDS: SPIRONOLACTONE 25 MG TABLET PO SCH (10:35)
[2020-09-26] MEDS: METOPROLOL TARTRATE 100 MG TABLET PO SCH ×2 (10:36→23:06)
[2020-09-26] MEDS: predniSONE 20 MG TABLET PO SCH (10:36)
[2020-09-26] MEDS: CYANOCOBALAMIN 500 MCG TABLET PO SCH (10:36)
[2020-09-26] MEDS: FUROSEMIDE 40 MG/4 ML VIAL IV SCH ×2 (10:36→17:22)
[2020-09-26] MEDS: FAMOTIDINE 20 MG TABLET PO SCH ×2 (10:36→21:07)
[2020-09-26] MEDS: AZITHROMYCIN 250 MG TABLET PO SCH (10:36)
[2020-09-26] MEDS: MONTELUKAST 10 MG TABLET PO SCH ×2 (10:36→21:07)
[2020-09-26] MEDS ORDERED: MAGNESIUM HYDROXIDE SUSP 30 ML UDCUP PO ONE (12:31)
[2020-09-26] MEDS: DOCUSATE SODIUM 100 MG CAPSULE PO SCH ×2 (13:53→21:08)
[2020-09-26] MEDS: POLYETHYLENE GLYCOL POWDER 17 GM PACK PO SCH ×2 (13:53→21:03)
[2020-09-26] MEDS: ONDANSETRON 4 MG/2 ML VIAL IV PRN (21:06)
[2020-09-26] MEDS: LOSARTAN 50 MG TABLET PO SCH (21:07)
[2020-09-26] MEDS: cefTRIAXone 1,000 MG in SYRINGE 1 EACH IV SCH (21:08)
[2020-09-27] MEDS: LEVALBUTEROL 1.25 MG/3 ML NEB RESP TX SCH ×4 (00:55→18:48)
[2020-09-27] MEDS: LEVOTHYROXINE 88 MCG TABLET PO SCH (06:05)
[2020-09-27 06:25] LABS: Basophils % 0.2 % (0.0-0.8); Hematocrit 33.8 VOL% (35.7-47.0); Hemoglobin 10.5 GM/DL (12.0-16.0); Immature Granulocytes % 4.6 %; Lymphocytes # 0.8 10*3/uL (1.4-4.0); Lymphocytes % 6.5 % (21.3-54.2); Mean Corpuscular HGB Conc 31.1 GM/DL (32-36); Mean Corpuscular Volume 91.6 FL (87-102); Monocytes % 5.1 % (1.7-12.7); NRBC # 0.06 10*3/uL; Neutrophils % 83.6 % (38.7-73.9); Red Blood Count 3.69 MC/CUMM (3.8-5.5); Red Cell Distribution Width 22.4 % (9.3-17.3)
[2020-09-27 06:32] LABS: Platelet Count 86 T/CUMM (130-400)
[2020-09-27 06:45] LABS: Band Neutrophils 1 % (0-10); Eosinophils 1 % (0-10); Hypochromasia 1+; Lymphocytes 7 % (20-55); Microcytosis 1+; Nucleated Red Blood Cells 1 (0-5); Platelet Estimate Decreased; Segmented Neutrophils 84 % (50-85); Total Cells Counted 100
[2020-09-27 06:50] LABS: Osmolality,Calculated 284.2 MOS/KG (273-304)
[2020-09-27] MEDS ORDERED: LINACLOTIDE 145 MCG CAPSULE PO SCH (07:30)
[2020-09-27] MEDS: CYANOCOBALAMIN 500 MCG TABLET PO SCH (10:30)
[2020-09-27] MEDS: FAMOTIDINE 20 MG TABLET PO SCH ×2 (10:30→22:45)
[2020-09-27] MEDS: predniSONE 20 MG TABLET PO SCH (10:31)
[2020-09-27] MEDS: ASCORBIC ACID 500 MG TABLET PO SCH ×2 (10:31→22:45)
[2020-09-27] MEDS: APIXABAN 5 MG TABLET PO SCH ×2 (10:31→22:44)
[2020-09-27] MEDS: AZITHROMYCIN 250 MG TABLET PO SCH (10:31)
[2020-09-27] MEDS: SPIRONOLACTONE 25 MG TABLET PO SCH (10:31)
[2020-09-27] MEDS: MONTELUKAST 10 MG TABLET PO SCH ×2 (10:31→22:45)
[2020-09-27] MEDS: POLYETHYLENE GLYCOL POWDER 17 GM PACK PO SCH ×3 (10:32→22:45)
[2020-09-27] MEDS: MAGNESIUM GLUCONATE 500 MG TABLET PO SCH (10:32)
[2020-09-27] MEDS: DOCUSATE SODIUM 100 MG CAPSULE PO SCH ×3 (10:32→22:44)
[2020-09-27] MEDS: METOPROLOL TARTRATE 100 MG TABLET PO SCH ×2 (10:32→22:44)
[2020-09-27] MEDS: LACTOBACILLUS RHAMNOSUS GG CAPSULE PO SCH ×2 (10:32→22:44)
[2020-09-27] MEDS: FUROSEMIDE 40 MG/4 ML VIAL IV SCH ×2 (10:33→16:24)
[2020-09-27] MEDS: LACTULOSE 20 GM/30 ML UDCUP PO SCH ×2 (15:48→22:44)
[2020-09-27] MEDS: METOCLOPRAMIDE 10 MG/2 ML VIAL IV SCH (15:50)
[2020-09-27] MEDS: MAGNESIUM HYDROXIDE SUSP 30 ML UDCUP PO ONE ×2 (18:05→18:21)
[2020-09-27] MEDS: HYDROCORTISONE 25 MG SUPP RECTAL PRN (18:05)
[2020-09-27] MEDS: LOSARTAN 50 MG TABLET PO SCH (22:44)
[2020-09-28] MEDS: LEVALBUTEROL 1.25 MG/3 ML NEB RESP TX SCH ×4 (00:19→20:07)
[2020-09-28] MEDS: METOCLOPRAMIDE 10 MG/2 ML VIAL IV SCH ×3 (00:35→16:04)
[2020-09-28] MEDS: LEVOTHYROXINE 88 MCG TABLET PO SCH (06:32)
[2020-09-28 06:51] LABS: Basophils % 0.1 % (0.0-0.8); Eosinophils # 0.1 10*3/uL (0.0-0.87); Eosinophils % 0.7 % (0.00-10.9); Hemoglobin 10.4 GM/DL (12.0-16.0); Immature Granulocytes % 3.5 %; Immature Granulocytes Absolute 0.49 #; Mean Corpuscular HGB Conc 30.6 GM/DL (32-36); Mean Corpuscular Volume 92.6 FL (87-102); Monocytes % 5.1 % (1.7-12.7); NRBC # 0.03 10*3/uL; Neutrophils % 83.6 % (38.7-73.9); Platelet Count 77 T/CUMM (130-400); Red Blood Count 3.67 MC/CUMM (3.8-5.5); Red Cell Distribution Width 22.7 % (9.3-17.3); White Blood Count 13.8 T/CUMM (4-12)
[2020-09-28 07:09] LABS: Calcium 9.7 MG/DL (8.5-10.1); Osmolality,Calculated 284.1 MOS/KG (273-304)
[2020-09-28 07:25] LABS: Hypochromasia 1+; Microcytosis 1+; Platelet Estimate Decreased
[2020-09-28] MEDS: FUROSEMIDE 40 MG/4 ML VIAL IV SCH ×2 (09:16→16:06)
[2020-09-28] MEDS: AZITHROMYCIN 250 MG TABLET PO SCH (09:20)
[2020-09-28] MEDS: ASCORBIC ACID 500 MG TABLET PO SCH ×2 (09:21→21:02)
[2020-09-28] MEDS: SPIRONOLACTONE 25 MG TABLET PO SCH (09:21)
[2020-09-28] MEDS: MAGNESIUM GLUCONATE 500 MG TABLET PO SCH (09:21)
[2020-09-28] MEDS: FAMOTIDINE 20 MG TABLET PO SCH ×2 (09:21→21:01)
[2020-09-28] MEDS: METOPROLOL TARTRATE 100 MG TABLET PO SCH ×2 (09:21→21:01)
[2020-09-28] MEDS: predniSONE 20 MG TABLET PO SCH (09:22)
[2020-09-28] MEDS: MONTELUKAST 10 MG TABLET PO SCH ×2 (09:22→21:02)
[2020-09-28] MEDS: DOCUSATE SODIUM 100 MG CAPSULE PO SCH ×2 (09:22→21:02)
[2020-09-28] MEDS: LACTOBACILLUS RHAMNOSUS GG CAPSULE PO SCH ×2 (09:22→21:02)
[2020-09-28] MEDS: CYANOCOBALAMIN 500 MCG TABLET PO SCH (09:22)
[2020-09-28] MEDS: APIXABAN 5 MG TABLET PO SCH ×2 (09:23→21:02)
[2020-09-28] MEDS: LINACLOTIDE 145 MCG CAPSULE PO SCH (09:38)
[2020-09-28] MEDS: POLYETHYLENE GLYCOL POWDER 17 GM PACK PO SCH ×2 (09:39→15:57)
[2020-09-28] MEDS: LACTULOSE 20 GM/30 ML UDCUP PO SCH ×2 (09:46→15:57)
[2020-09-28] MEDS: ONDANSETRON 4 MG/2 ML VIAL IV PRN (11:41)
[2020-09-28] MEDS: HYDROCORTISONE 25 MG SUPP RECTAL PRN (13:13)
[2020-09-28] MEDS: LOSARTAN 50 MG TABLET PO SCH (21:01)
[2020-09-28] MEDS: CYPROHEPTADINE 4 MG TABLET PO SCH (21:01)
[2020-09-29] MEDS: LEVALBUTEROL 1.25 MG/3 ML NEB RESP TX SCH ×4 (01:41→20:40)
[2020-09-29 04:51] LABS: Basophils % 0.1 % (0.0-0.8); Eosinophils # 0.1 10*3/uL (0.0-0.87); Eosinophils % 0.8 % (0.00-10.9); Hematocrit 32.9 VOL% (35.7-47.0); Hemoglobin 10.2 GM/DL (12.0-16.0); Immature Granulocytes % 3.2 %; Immature Granulocytes Absolute 0.33 #; Lymphocytes # 0.9 10*3/uL (1.4-4.0); Lymphocytes % 9.1 % (21.3-54.2); Mean Corpuscular Volume 93.2 FL (87-102); Monocytes % 6.1 % (1.7-12.7); Neutrophils % 80.7 % (38.7-73.9); Red Blood Count 3.53 MC/CUMM (3.8-5.5); Red Cell Distribution Width 22.5 % (9.3-17.3); White Blood Count 10.2 T/CUMM (4-12)
[2020-09-29 04:55] LABS: Platelet Count 68 T/CUMM (130-400)
[2020-09-29 05:08] LABS: Calcium 9.7 MG/DL (8.5-10.1)
[2020-09-29 05:09] LABS: Lymphocytes 6 % (20-55); Platelet Estimate Decreased; Segmented Neutrophils 88 % (50-85); Total Cells Counted 100
[2020-09-29 05:10] LABS: Hypochromasia 1+; Microcytosis 1+
[2020-09-29] MEDS: LEVOTHYROXINE 88 MCG TABLET PO SCH (06:13)
[2020-09-29] MEDS ORDERED: CHOLECALCIFEROL 1,000 UNIT TABLET PO SCH (09:00)
[2020-09-29] MEDS: FUROSEMIDE 40 MG/4 ML VIAL IV SCH (10:05)
[2020-09-29] MEDS: POLYETHYLENE GLYCOL POWDER 17 GM PACK PO SCH (10:05)
[2020-09-29] MEDS: LINACLOTIDE 145 MCG CAPSULE PO SCH (10:05)
[2020-09-29] MEDS: ASCORBIC ACID 500 MG TABLET PO SCH ×2 (10:05→21:25)
[2020-09-29] MEDS: CYPROHEPTADINE 4 MG TABLET PO SCH ×3 (10:06→21:25)
[2020-09-29] MEDS: APIXABAN 5 MG TABLET PO SCH ×2 (10:06→21:25)
[2020-09-29] MEDS: predniSONE 20 MG TABLET PO SCH (10:06)
[2020-09-29] MEDS: FAMOTIDINE 20 MG TABLET PO SCH ×2 (10:06→21:25)
[2020-09-29] MEDS: MONTELUKAST 10 MG TABLET PO SCH ×2 (10:06→21:25)
[2020-09-29] MEDS: METOPROLOL TARTRATE 100 MG TABLET PO SCH ×2 (10:06→21:25)
[2020-09-29] MEDS: DOCUSATE SODIUM 100 MG CAPSULE PO SCH ×2 (10:06→21:25)
[2020-09-29] MEDS: LACTOBACILLUS RHAMNOSUS GG CAPSULE PO SCH ×2 (10:07→21:25)
[2020-09-29] MEDS: CYANOCOBALAMIN 500 MCG TABLET PO SCH (10:07)
[2020-09-29] MEDS: SPIRONOLACTONE 25 MG TABLET PO SCH (10:07)
[2020-09-29] MEDS: FUROSEMIDE 40 MG TABLET PO SCH (16:08)
[2020-09-29] MEDS: LOSARTAN 50 MG TABLET PO SCH (21:25)
[2020-09-29] MEDS: ONDANSETRON 4 MG/2 ML VIAL IV PRN (21:28)
[2020-09-30] MEDS: LEVALBUTEROL 1.25 MG/3 ML NEB RESP TX SCH ×4 (02:10→19:35)
[2020-09-30 05:59] LABS: Basophils % 0.1 % (0.0-0.8); Eosinophils # 0.1 10*3/uL (0.0-0.87); Eosinophils % 0.8 % (0.00-10.9); Hematocrit 32.4 VOL% (35.7-47.0); Hemoglobin 10.2 GM/DL (12.0-16.0); Immature Granulocytes Absolute 0.35 #; Lymphocytes % 8.8 % (21.3-54.2); Mean Corpuscular HGB Conc 31.5 GM/DL (32-36); Mean Corpuscular Volume 93.4 FL (87-102); Monocytes % 5.8 % (1.7-12.7); Neutrophils % 81.5 % (38.7-73.9); Red Blood Count 3.47 MC/CUMM (3.8-5.5); Red Cell Distribution Width 22.2 % (9.3-17.3); White Blood Count 11.6 T/CUMM (4-12)
[2020-09-30 06:01] LABS: Platelet Count 76 T/CUMM (130-400)
[2020-09-30] MEDS: LEVOTHYROXINE 88 MCG TABLET PO SCH (06:13)
[2020-09-30 06:17] LABS: Calcium 10.1 MG/DL (8.5-10.1)
[2020-09-30 06:24] LABS: Hypochromasia 1+; Microcytosis 1+; Platelet Estimate Decreased
[2020-09-30] MEDS: ONDANSETRON 4 MG/2 ML VIAL IV PRN ×2 (08:33→21:27)
[2020-09-30] MEDS: CYPROHEPTADINE 4 MG TABLET PO SCH ×3 (08:33→21:28)
[2020-09-30] MEDS: LACTOBACILLUS RHAMNOSUS GG CAPSULE PO SCH ×2 (08:33→21:22)
[2020-09-30] MEDS: DOCUSATE SODIUM 100 MG CAPSULE PO SCH ×2 (08:34→21:11)
[2020-09-30] MEDS: APIXABAN 5 MG TABLET PO SCH ×2 (08:34→21:12)
[2020-09-30] MEDS: CYANOCOBALAMIN 500 MCG TABLET PO SCH (08:35)
[2020-09-30] MEDS: METOPROLOL TARTRATE 100 MG TABLET PO SCH ×2 (08:35→21:22)
[2020-09-30] MEDS: LINACLOTIDE 145 MCG CAPSULE PO SCH (08:35)
[2020-09-30] MEDS: FAMOTIDINE 20 MG TABLET PO SCH ×2 (08:36→21:12)
[2020-09-30] MEDS: ASCORBIC ACID 500 MG TABLET PO SCH ×2 (08:36→21:12)
[2020-09-30] MEDS: MONTELUKAST 10 MG TABLET PO SCH ×2 (08:37→21:11)
[2020-09-30] MEDS: FUROSEMIDE 40 MG TABLET PO SCH ×2 (08:37→16:11)
[2020-09-30] MEDS: predniSONE 20 MG TABLET PO SCH (08:37)
[2020-09-30] MEDS: POLYETHYLENE GLYCOL POWDER 17 GM PACK PO SCH (08:37)
[2020-09-30] MEDS: SPIRONOLACTONE 25 MG TABLET PO SCH (08:37)
[2020-09-30] MEDS: ACETAMINOPHEN 325 MG TABLET PO PRN (21:13)
[2020-09-30] MEDS: LOSARTAN 50 MG TABLET PO SCH (21:34)
[2020-10-01] MEDS: LEVALBUTEROL 1.25 MG/3 ML NEB RESP TX SCH ×2 (01:00→07:24)
[2020-10-01 05:24] LABS: Basophils % 0.1 % (0.0-0.8); Eosinophils % 0.4 % (0.00-10.9); Hematocrit 32.1 VOL% (35.7-47.0); Hemoglobin 10.1 GM/DL (12.0-16.0); Immature Granulocytes % 2.6 %; Immature Granulocytes Absolute 0.25 #; Lymphocytes # 0.8 10*3/uL (1.4-4.0); Lymphocytes % 8.5 % (21.3-54.2); Mean Corpuscular HGB Conc 31.5 GM/DL (32-36); Mean Corpuscular Volume 92.2 FL (87-102); Monocytes % 5.7 % (1.7-12.7); Neutrophils % 82.7 % (38.7-73.9); Red Blood Count 3.48 MC/CUMM (3.8-5.5); Red Cell Distribution Width 21.9 % (9.3-17.3); White Blood Count 9.5 T/CUMM (4-12)
[2020-10-01 05:25] LABS: Platelet Count 72 T/CUMM (130-400)
[2020-10-01 05:37] LABS: Calcium 10.2 MG/DL (8.5-10.1); Osmolality,Calculated 292.1 MOS/KG (273-304)
[2020-10-01 05:46] LABS: Lymphocytes 13 % (20-55); Segmented Neutrophils 83 % (50-85); Total Cells Counted 100
[2020-10-01 05:47] LABS: Hypochromasia 1+; Microcytosis 1+; Platelet Estimate Decreased
[2020-10-01] MEDS: LEVOTHYROXINE 88 MCG TABLET PO SCH (06:08)
[2020-10-01] MEDS ORDERED: BENZOCAINE/MENTHOL LOZENGE 18/BOX PO PRN (09:02)
[2020-10-01] MEDS: MONTELUKAST 10 MG TABLET PO SCH (09:25)
[2020-10-01] MEDS: LINACLOTIDE 145 MCG CAPSULE PO SCH (09:25)
[2020-10-01] MEDS: POLYETHYLENE GLYCOL POWDER 17 GM PACK PO SCH (09:25)
[2020-10-01] MEDS: FUROSEMIDE 40 MG TABLET PO SCH (09:25)
[2020-10-01] MEDS: FAMOTIDINE 20 MG TABLET PO SCH (09:26)
[2020-10-01] MEDS: SPIRONOLACTONE 25 MG TABLET PO SCH (09:26)
[2020-10-01] MEDS: LACTOBACILLUS RHAMNOSUS GG CAPSULE PO SCH (09:26)
[2020-10-01] MEDS: CYPROHEPTADINE 4 MG TABLET PO SCH (09:26)
[2020-10-01] MEDS: predniSONE 20 MG TABLET PO SCH (09:26)
[2020-10-01] MEDS: DOCUSATE SODIUM 100 MG CAPSULE PO SCH (09:26)
[2020-10-01] MEDS: APIXABAN 5 MG TABLET PO SCH (09:27)
[2020-10-01] MEDS: CYANOCOBALAMIN 500 MCG TABLET PO SCH (09:27)
[2020-10-01] MEDS: METOPROLOL TARTRATE 100 MG TABLET PO SCH (09:28)
[2020-10-01] MEDS ORDERED: ASCORBIC ACID 500 MG TABLET PO ONE (10:00)
[2020-10-01] MEDS ORDERED: CYANOCOBALAMIN 500 MCG TABLET PO ONE (10:00)
[2020-10-01] MEDS: ASCORBIC ACID 500 MG TABLET PO SCH (10:10)
[2020-10-01 11:57] VITALS: BP 112/76
== END 2020-10-01 13:00 | disposition swing bed (61) | DRG 871 ==
LOC: EDBD → EDUNIT# → N.ED 19:38 → SUATTDRO 09-19 00:05 → N.EDINP 09-19 00:05 → N.TELEN 09-19 01:10
PROVIDERS: ADMIT Family Medicine; ATTEND Family Medicine

== ENCOUNTER 2020-11-16 03:26 | Inpatient (IN) ==
[2020-11-16 04:09] LABS: Basophils % 0.2 % (0.0-0.8); Eosinophils % 0.1 % (0.00-10.9); Hematocrit 34.5 VOL% (35.7-47.0); Hemoglobin 10.2 GM/DL (12.0-16.0); Immature Granulocytes % 0.6 %; Immature Granulocytes Absolute 0.06 #; Lymphocytes # 1.2 10*3/uL (1.4-4.0); Mean Corpuscular HGB Conc 29.6 GM/DL (32-36); Monocytes % 5.8 % (1.7-12.7); Neutrophils % 81.3 % (38.7-73.9); Platelet Count 110 T/CUMM (130-400); Red Blood Count 3.75 MC/CUMM (3.8-5.5); Red Cell Distribution Width 17.7 % (9.3-17.3); White Blood Count 10.2 T/CUMM (4-12)
[2020-11-16 04:16] LABS: INR 1.9; PT Patient Result 19.3 SECS (9.8-11.9)
[2020-11-16] MEDS ORDERED: SODIUM CHLORIDE 0.9% 1,000 ML IV STA (04:38)
[2020-11-16] MEDS ORDERED: ACETAMINOPHEN 500 MG TABLET PO STA (05:02)
[2020-11-16] MEDS ORDERED: ACETAMINOPHEN 500 MG TABLET ONE (05:03)
[2020-11-16 05:04] LABS: Alanine Aminotransferase 26 U/L (13-56); Albumin 2.5 G/DL (3.4-5.0); Alkaline Phosphatase 103 U/L (45-117); Aspartate Amino Transferase 40 U/L (0-37); Blood Urea Nitrogen 47 MG/DL (7-18); Calcium 8.5 MG/DL (8.5-10.1); Estimated Glom Filtration Rate 19 ML/MIN; Glucose 106 MG/DL (74-106); Osmolality,Calculated 273.7 MOS/KG (273-304); Total Protein 6.4 G/DL (6.4-8.3)
[2020-11-16] MEDS ORDERED: FUROSEMIDE 40 MG/4 ML VIAL IV STA (05:18)
[2020-11-16] MEDS ORDERED: LEVOFLOXACIN INJ 500 MG in PREMIX 1 EACH IV STA (05:23)
[2020-11-16] MEDS ORDERED: ONDANSETRON 4 MG/2 ML VIAL IV STA (05:48)
[2020-11-16] MEDS ORDERED: ONDANSETRON 4 MG/2 ML VIAL ONE (05:49)
[2020-11-16] MEDS ORDERED: ACETAMINOPHEN 325 MG TABLET PO PRN (05:55)
[2020-11-16] MEDS ORDERED: GLUCAGON 1 MG VIAL IM PRN (05:55)
[2020-11-16] MEDS ORDERED: ZALEPLON 5 MG CAPSULE PO PRN (05:55)
[2020-11-16] MEDS ORDERED: MAGNESIUM SULF RIDER 4 GM in PREMIX 1 EACH IV PRN (05:55)
[2020-11-16] MEDS ORDERED: MAGNESIUM SULF RIDER 2 GM in PREMIX 1 EACH IV PRN (05:55)
[2020-11-16] MEDS ORDERED: ONDANSETRON 4 MG/2 ML VIAL IV PRN (05:55)
[2020-11-16] MEDS ORDERED: DEXTROSE 50% 25 GM/50 ML VIAL IV PRN (05:55)
[2020-11-16] MEDS ORDERED: SODIUM CHLORIDE 0.9% 1,000 ML IV SCH (06:00)
[2020-11-16 06:02] LABS: Anisocytosis 2+; Platelet Estimate Adequate; Polychromasia 1+
[2020-11-16 06:03] LABS: Macrocytosis 1+
[2020-11-16] MEDS ORDERED: OXYMETAZOLINE 0.05% NASAL SPRAY 15 ML BOTTLE BOTH NARES PRN (06:05)
[2020-11-16] MEDS ORDERED: ALPRAZolam 0.25 MG TABLET PO PRN (06:05)
[2020-11-16] MEDS ORDERED: BECLOMETHASONE DIPROPIONATE BOTH NARES PRN (06:05)
[2020-11-16] MEDS ORDERED: SIMETHICONE CHEW 80 MG TABLET PO PRN (06:05)
[2020-11-16] MEDS ORDERED: BECLOMETHASONE 80 MCG/PUFF INHALER 8.7 GM INH PRN (06:05)
[2020-11-16] MEDS ORDERED: HYDROCORTISONE 25 MG SUPP RECTAL PRN (06:05)
[2020-11-16] MEDS ORDERED: MELATONIN 3 MG TABLET PO PRN (06:05)
[2020-11-16] MEDS ORDERED: SODIUM CHLORIDE 0.65% NASAL SPRAY 45 ML BOTTLE BOTH NARES PRN (06:05)
[2020-11-16 06:40] LABS: Amorphous Crystals,Urine Few /HPF (Few); Bilirubin,Urine Negative (Negative); Blood, Urine Small mg/dL (Negative); Glucose,Urine (UA) Negative (Negative); Hyaline Casts,Urine 86 /LPF (0-3); Ketones,Urine Negative (Negative); Mucus,Urine Occasional /LPF (Occasional); Nitrite,Urine Negative (Negative); Protein,Urine Negative; RBC,Urine 2 /HPF (0-4); Squamous Epithelial Cell,Urine Occasional /HPF (0-10); Urine Appearance CLEAR (Clear); Urine Color Amber (Yellow); Urine Specific Gravity 1.018 (1.001-1.035); Urine Urobilinogen < 2.0 EU/DL (0.2-1.0); WBC,Urine <1 /HPF (0-6)
[2020-11-16] MEDS ORDERED: LINACLOTIDE 145 MCG CAPSULE PO SCH (07:30)
[2020-11-16 07:43] VITALS: BP 105/47
[2020-11-16] MEDS ORDERED: busPIRone 10 MG TABLET PO SCH (09:00)
[2020-11-16] MEDS ORDERED: DESITIN 4OZ/NYSTATIN 15 GRAM MIXTURE PASTE TOP SCH (09:00)
[2020-11-16] MEDS ORDERED: predniSONE 5 MG TABLET PO SCH (09:00)
[2020-11-16] MEDS ORDERED: LEVOFLOXACIN INJ 500 MG in PREMIX 1 EACH IV ONE (09:00)
[2020-11-16] MEDS ORDERED: LACTOBACILLUS RHAMNOSUS GG CAPSULE PO SCH (09:00)
[2020-11-16] MEDS ORDERED: APIXABAN 5 MG TABLET PO SCH (09:00)
[2020-11-16] MEDS ORDERED: METOPROLOL TARTRATE 25 MG TABLET PO SCH (09:00)
[2020-11-16] MEDS ORDERED: CYPROHEPTADINE 4 MG TABLET PO SCH (09:00)
[2020-11-16] MEDS ORDERED: FAMOTIDINE 20 MG TABLET PO SCH (09:00)
[2020-11-16] MEDS: CYANOCOBALAMIN 500 MCG TABLET PO SCH ×2 (09:25→10:25)
[2020-11-16] MEDS: MAGNESIUM OXIDE 400 MG TABLET PO SCH ×2 (09:25→10:25)
[2020-11-16] MEDS: CHOLECALCIFEROL 1,000 UNIT TABLET PO SCH ×2 (09:25→10:24)
[2020-11-16] MEDS: ASCORBIC ACID 500 MG TABLET PO SCH ×2 (09:25→10:24)
[2020-11-16] MEDS ORDERED: FUROSEMIDE 40 MG/4 ML VIAL IV ONE (10:44)
[2020-11-16] MEDS ORDERED: SODIUM CHLORIDE 0.9% 500 ML IV ONE (11:01)
[2020-11-16] MEDS ORDERED: NOREPINEPHRINE 4 MG/4 ML VIAL IV ONE (11:26)
[2020-11-16] MEDS ORDERED: SODIUM BICARBONATE 50 MEQ/50 ML VIAL IV ONE (11:27)
[2020-11-16] MEDS ORDERED: MIDAZOLAM 2 MG/2 ML VIAL ONE (11:34)
[2020-11-16] MEDS ORDERED: MIDAZOLAM 2 MG/2 ML VIAL IV ONE (11:39)
[2020-11-16 11:46] LABS: ABG Base Excess -4.2 MMOL/L (-2.5-2.5); ABG PCO2 38.9 MM HG (35-48); ABG PH 7.343 (7.35-7.45); ABG TCO2 19.7 MMOL/L (23-27)
[2020-11-16] MEDS ORDERED: ALBUMIN 5% 12.5 GM/250 ML VIAL IV ONE (11:46)
[2020-11-16] MEDS ORDERED: ALBUMIN 5% 12.5 GM in PREMIX 1 EACH IV ONE (12:04)
[2020-11-16] MEDS ORDERED: NOREPINEPHRINE 8 MG in SODIUM CHLORIDE 0.9% 242 ML IV PRN (12:30)
[2020-11-16] MEDS ORDERED: dilTIAZem Drip 125 MG/125 ML PREMIX IV SCH (12:30)
[2020-11-16] MEDS ORDERED: SODIUM BICARBONATE 50 MEQ/50 ML SYRINGE IV ONE (12:41)
[2020-11-16] MEDS ORDERED: EPINEPHrine 1 MG/10 ML SYRINGE ONE (12:41)
[2020-11-16] MEDS ORDERED: FUROSEMIDE 40 MG/4 ML VIAL IV SCH (16:00)
[2020-11-17] MEDS ORDERED: LEVOTHYROXINE 88 MCG TABLET PO SCH (06:30)
[2020-11-18] MEDS ORDERED: LEVOFLOXACIN INJ 250 MG in PREMIX 1 EACH IV SCH (09:00)
== END 2020-11-16 13:00 | disposition expired | DRG 871 ==
LOC: EDUNIT# → SUATTDRO → N.ED 03:26 → N.EDINP 05:55 → SUATTDRO 05:55 → N.EDINP 07:16 → N.5E 07:22 → N.ICU 11:34
PROVIDERS: ADMIT Internal Medicine; ATTEND Internal Medicine